=== PATIENT | female | born 1960 | race Caucasian/White ===

== ENCOUNTER → 2016-10-27 | Outpatient (CLI) | payer MEDICARE ==
--- NOTE | 2016-10-27 12:53 | WOMENS IMAGING REPORT ---
EXAM DESCRIPTION: BILAT SCREENING MAMMO W/CAD COMPLETED DATE/TIME: 10/27/2016 9:31 am REASON FOR STUDY: Z12.31, ROUTINE SCREENING MAMMO Z12.31 ENCNTR SCREEN MAMMOGRAM FOR MALIGNANT NEOP LASM OF CELESTINO COMPARISON: 08/07/2015 TECHNIQUE: Standard craniocaudal and mediolateral oblique views of each breast recorded using digita l acquisition. LIMITATIONS: None. FINDINGS: No masses, calcifications or architectural distortion. No areas of suspicion. Read with the assistance of CAD. .[facility] - R2 Cenova Version 1.3 .[facility] - R2 Cenova Version 1.3 .[facility] - R2 Cenova Version 2.4 .[facility]2 Cenova Version 2.4 [facility] - R2 [employer] Version 9.2 BREAST DENSITY: b. There are scattered areas of fibroglandular density. BIRAD: 1 NEGATIVE RECOMMENDATION: ROUTINE SCREENING COMMENT: PATIENT NOTIFIED BY LETTER. The [employer] recommends an annual screening mammogram for women aged 40 years or over. Each patient will receive a reminder prior to the anniversary date of her mammogram. The [employer] (ACR) has developed recommendations for screening MRI of the breast s in certain patient populations, to be used in conjunction with mammography. Breast MRI surveillanc e may be appropriate for women with more than 20% lifetime risk of developing breast cancer as deter mined by genetic testing, significant family history of the disease, or history of mantle radiation f or Hodgkins Disease. ACR Practice Guidelines 2008. TECHNICAL DOCUMENTATION: FINDING NUMBER: (1) ASSESSMENT: (1) JOB ID: [id number] [employer]- All Rights Reserved
== END ==
LOC: WI 09:07
PROVIDERS: ATTEND Family Medicine
DX: Z12.31 Encounter for screening mammogram for malignant neoplasm of breast (principal)
CPT/HCPCS: 77067; G0202

== ENCOUNTER → 2017-01-06 | Outpatient (CLI) | payer MEDICARE | LOC: RAD 09:35 | PROVIDERS: ATTEND Family Medicine | DX: M25.561 Pain in right knee (principal); M25.562 Pain in left knee; R60.9 Edema, unspecified ==

== ENCOUNTER 2017-03-04 20:33 | Emergency (ER) | payer MEDICARE, OTHER ==
[2017-03-04] MEDS ORDERED: HYDROCODONE/ACETAMINOPHEN 5-325 MG TABLET PO ONE (22:14)
--- NOTE | 2017-03-04 22:15 | ER Document Report ---
ED Extremity Problem, Lower - General Chief Complaint: Ankle Pain Stated Complaint: LEFT ANKLE PAIN Time Seen by Provider: 03/04/17 21:58 Notes: The patient is a 56-year-old female, past medical history multiple back surgeries, chronic left ankle pain from tendinopathy, presents with 1 day of worsening left ankle pain. She had a cast placed by her orthopedist last week. She is now noticing tingling in her toes. She is taking tramadol without much relief of her symptoms. Denies new injury, fevers, redness or rash. TRAVEL OUTSIDE OF THE [place] IN LAST 30 DAYS: No - Related Data Allergies/Adverse Reactions: diclofenac [Diclofenac] Allergy (Intermediate, Verified 07/07/15 08:56) Hives Sulfa (Sulfonamide Antibiotics) Allergy (Intermediate, Verified 07/07/15 08:56) elevated WBC count, elevated B/P Past Medical History - General Information source: Patient - Social History Smoking Status: Unknown if Ever Smoked Family History: Reviewed & Not Pertinent Patient has suicidal ideation: No Patient has homicidal ideation: No - Past Medical History Cardiac Medical History: Denies: Hx Coronary Artery Disease, Hx Heart Attack, Hx Hypertension Pulmonary Medical History: Denies: Hx Asthma, Hx Bronchitis, Hx COPD, Hx Pneumonia Neurological Medical History: Denies: Hx Cerebrovascular Accident, Hx Seizures Endocrine Medical History: Reports: Hx Hypothyroidism Renal/ Medical History: Denies: Hx Peritoneal Dialysis GI Medical History: Reports: Hx Gastroesophageal Reflux Disease Musculoskeltal Medical History: Reports Hx Arthritis - back/neck Psychiatric Medical History: Reports: Hx Depression Past Surgical History: Reports: Hx Section - x3, Hx Hysterectomy, Hx Orthopedic Surgery - left total hip replacement, Hx Tubal Ligation - Immunizations Hx Diphtheria, Pertussis, Tetanus Vaccination: Yes - <5years Review of Systems - Review of Systems Notes: REVIEW OF SYSTEMS: CONSTITUTIONAL: -fevers, -chills EENT: -eye pain, -difficulty swallowing, -nasal congestion CARDIOVASCULAR:-chest pain, -syncope. RESPIRATORY: -cough, -SOB GASTROINTESTINAL: -abdominal pain, - nausea, -vomiting, -diarrhea GENITOURINARY: -dysuria, -hematuria MUSCULOSKELETAL: +left ankle pain, -back pain, -neck pain SKIN: -rash or skin lesions. HEMATOLOGIC: -easy bruising or bleeding. LYMPHATIC: -swollen, enlarged glands. NEUROLOGICAL: -altered mental status or loss of consciousness, -headache, - neurologic symptoms PSYCHIATRIC: -anxiety, -depression. ALL OTHER SYSTEMS REVIEWED AND NEGATIVE. Physical Exam - Vital signs Vitals: Temp Pulse Resp BP Pulse Ox 98.1 F 117 H 20 150/77 H 99 03/04/17 20:53 03/04/17 20:53 03/04/17 20:53 03/04/17 20:53 03/04/17 20:53 - Notes Notes: PHYSICAL EXAMINATION: GENERAL: Crying, anxious HEAD: Atraumatic, normocephalic. EYES: Pupils equal round and reactive to light, extraocular movements intact, sclera anicteric, conjunctiva are normal. ENT: nares patent, oropharynx clear without exudates. Moist mucous membranes. NECK: Normal range of motion, supple without lymphadenopathy LUNGS: Breath sounds clear to auscultation bilaterally and equal. No wheezes rales or rhonchi. HEART: Regular rate and rhythm without murmurs ABDOMEN: Soft, nontender, normoactive bowel sounds. No guarding, no rebound. No masses appreciated. EXTREMITIES: Left ankle in cast, delayed left toe capillary refills, able to wiggle all toes. No cyanosis. NEUROLOGICAL: Cranial nerves grossly intact. Normal speech, normal gait. Normal sensory and motor exams. PSYCH: Normal mood, normal affect. SKIN: Warm, Dry, normal turgor, no rashes or lesions noted. Course - Re-evaluation Re-evalutation: Patient's left ankle cast was bivalved and patient had relief of her pain and toe tingling. Patient feels much better. Will send her home with follow-up at the orthopedic surgeon. - Vital Signs Vital signs: Temp Pulse Resp BP Pulse Ox 98.5 F 92 17 140/66 H 95 03/04/17 23:00 03/04/17 23:00 03/04/17 23:00 03/04/17 23:00 03/04/17 23:00 - Diagnostic Test Radiology reviewed: Image reviewed, Reports reviewed Radiology results interpreted by me: Left ankle x-ray: NAD Procedures - Joint Reduction/Fracture Care Left Ankle Time completed: 22:43 Consent obtained: Yes Pre-procedure NV exam: Yes Complications: No Notes: Bivalved left lower extremity cast using cast cutter. Discharge - Discharge Clinical Impression: Left ankle pain Qualifiers: Chronicity: unspecified Qualified Code(s): M25.572 - Pain in left ankle and joints of left foot Condition: Good Disposition: HOME, SELF-CARE Additional Instructions: Keep the Sebastian wrap around the cast. Follow-up with the orthopedic surgeon on Monday. Prescriptions: Hydrocodone/Acetaminophen [Solon 5-325 mg Tablet] 1 tab PO Q6H PRN #9 tablet PRN Reason: Referrals: JEFE WOOD DO [Primary Care Provider] - Follow up as needed
--- NOTE | 2017-03-04 22:24 | RADIOLOGY REPORT (SQ) ---
EXAM DESCRIPTION: ANKLE LEFT COMPLETE COMPLETED DATE/TIME: 03/04/2017 10:03 pm REASON FOR STUDY: pain COMPARISON: 10/05/2009 NUMBER OF VIEWS: Three views. TECHNIQUE: AP, lateral, and oblique radiographic images acquired of the left ankle. LIMITATIONS: Overlying casting material obscures fine osseous detail. FINDINGS: MINERALIZATION: Normal. BONES: No acute fracture or dislocation. No worrisome bone lesions. JOINTS: No effusions. SOFT TISSUES: No soft tissue swelling. No foreign body. OTHER: No other significant finding. IMPRESSION: Overlying casting material obscures fine osseous detail. No discrete radiographic evide nce of acute osseous injury. TECHNICAL DOCUMENTATION: JOB ID: [id number] [employer]- All Rights Reserved
[2017-03-04 23:08] VITALS: BP 140/66
== END 2017-03-04 23:10 | disposition home or self-care (01) ==
LOC: ER 20:33
DX: Z46.89 Encounter for fitting and adjustment of other specified devices (principal); M67.972 Unspecified disorder of synovium and tendon, left ankle and foot; M25.572 Pain in left ankle and joints of left foot; G89.29 Other chronic pain; R20.2 Paresthesia of skin; Z98.890 Other specified postprocedural states; Z79.891 Long term (current) use of opiate analgesic; Z88.3 Allergy status to other anti-infective agents; Z88.2 Allergy status to sulfonamides
CPT/HCPCS: 99283

== ENCOUNTER 2017-07-04 18:51 | Emergency (ER) | payer OTHER ==
[2017-07-04] MEDS ORDERED: HYDROMORPHONE HCL INJ/PF 2 MG/ML AMPULE IV ONE (18:54)
[2017-07-04] MEDS ORDERED: KETAMINE HCL INJ 500 MG/10 ML VIAL IV ONE (18:54)
--- NOTE | 2017-07-04 19:00 | ER Document Report ---
ED Extremity Problem, Lower - General Chief Complaint: Hip Injury Stated Complaint: RIGHT HIP PAIN Time Seen by Provider: 07/04/17 18:54 Notes: The patient is a 56-year-old female, past medical history multiple orthopedic surgeries, presents with right hip pain that started after she was using her scooter and felt a pop. She had left ankle surgery performed in [facility] last week. She took Vicodin without much relief of her pain. EMS provided her with 2 mg IV Dilaudid, 5 mg IV Valium, 100 mcg IV fentanyl and she is still in pain. Patient denies open wounds, numbness, tingling, head injury or neck pain. TRAVEL OUTSIDE OF THE [place] IN LAST 30 DAYS: No - Related Data Allergies/Adverse Reactions: diclofenac [Diclofenac] Allergy (Intermediate, Verified 07/07/15 08:56) Hives Sulfa (Sulfonamide Antibiotics) Allergy (Intermediate, Verified 07/07/15 08:56) elevated WBC count, elevated B/P Past Medical History - General Information source: Patient, Emergency Med Personnel - Social History Smoking Status: Unknown if Ever Smoked Family History: Reviewed & Not Pertinent - Past Medical History Cardiac Medical History: Denies: Hx Coronary Artery Disease, Hx Heart Attack, Hx Hypertension Pulmonary Medical History: Denies: Hx Asthma, Hx Bronchitis, Hx COPD, Hx Pneumonia Neurological Medical History: Denies: Hx Cerebrovascular Accident, Hx Seizures Endocrine Medical History: Reports: Hx Hypothyroidism Renal/ Medical History: Denies: Hx Peritoneal Dialysis GI Medical History: Reports: Hx Gastroesophageal Reflux Disease Musculoskeltal Medical History: Reports Hx Arthritis - back/neck Psychiatric Medical History: Reports: Hx Depression Past Surgical History: Reports: Hx Section - x3, Hx Hysterectomy, Hx Orthopedic Surgery - left total hip replacement, Hx Tubal Ligation - Immunizations Hx Diphtheria, Pertussis, Tetanus Vaccination: Yes - <5years Review of Systems - Review of Systems Notes: REVIEW OF SYSTEMS: CONSTITUTIONAL: -fevers, -chills EENT: -eye pain, -difficulty swallowing, -nasal congestion CARDIOVASCULAR:-chest pain, -syncope. RESPIRATORY: -cough, -SOB GASTROINTESTINAL: -abdominal pain, -nausea, -vomiting, -diarrhea GENITOURINARY: -dysuria, -hematuria MUSCULOSKELETAL: +right hip pain, -back pain, -neck pain SKIN: -rash or skin lesions. HEMATOLOGIC: -easy bruising or bleeding. LYMPHATIC: -swollen, enlarged glands. NEUROLOGICAL: -altered mental status or loss of consciousness, -headache, - neurologic symptoms PSYCHIATRIC: -anxiety, -depression. ALL OTHER SYSTEMS REVIEWED AND NEGATIVE. Physical Exam - Vital signs Vitals: Pulse Resp BP Pulse Ox 89 20 155/89 H 97 07/04/17 19:09 07/04/17 19:09 07/04/17 19:09 07/04/17 19:09 - Notes Notes: PHYSICAL EXAMINATION: GENERAL: Distressed. HEAD: Atraumatic, normocephalic. EYES: Pupils equal round and reactive to light, extraocular movements intact, sclera anicteric, conjunctiva are normal. ENT: nares patent, oropharynx clear without exudates. Moist mucous membranes. NECK: Normal range of motion, supple without lymphadenopathy LUNGS: Breath sounds clear to auscultation bilaterally and equal. No wheezes rales or rhonchi. HEART: Tachycardia, regular rhythm. ABDOMEN: Soft, nontender, normoactive bowel sounds. No guarding, no rebound. No masses appreciated. EXTREMITIES: Inward rotation of right leg with shortening. Strong distal pulses. No sensory changes. NEUROLOGICAL: Cranial nerves grossly intact. Normal speech, normal gait. Normal sensory and motor exams. PSYCH: Normal mood, normal affect. SKIN: Warm, Dry, normal turgor, no rashes or lesions noted. Course - Re-evaluation Re-evalutation: Patient with right hip dislocation of her prosthetic hip. She is neurovascularly intact distally. Hip successfully reduced with procedural sedation. She has an appointment with her Orthopedic Surgeon tomorrow in [place]. Instructed her to keep off her legs, take her home [place], add Naprosyn and follow-up with orthopedics tomorrow. - Vital Signs Vital signs: Temp Pulse Resp BP Pulse Ox 73 13 120/75 100 07/04/17 21:03 07/04/17 21:03 07/04/17 21:03 07/04/17 21:03 - Diagnostic Test Radiology reviewed: Image reviewed, Reports reviewed Radiology results interpreted by me: Right hip x-ray: superior lateral hip dislocation, no fractures Procedures - Conscious Sedation Conscious sedation Time started: 20:35 Time completed: 21:00 Consent obtained: Yes Indication: right hip dislocation Last meal: 1200 Normal healthy pt.: P1. - ASA Classification Airway Evaluation: Normal anatomy Mallampati Classification: Class 1 Used during procedure: Suction available, IV access obtained, Pulse ox on pt., surgical assistant certified on pt. Medications administered: Diprivan Reversal agents: None I personally performed/intraservice time: Sedation, Procedure, 30 min or less Complications: No - Joint Reduction/Fracture Care Right Hip Time completed: 20:59 Consent obtained: Yes Conscious sedation: Yes Pre-procedure NV exam: Yes Fracture: Other - right hip dislocation Manipulation comment: internal rotation Post-procedure NV exam: Yes Post-reduction x-ray: Joint reduced Reduction attempts: 2 Complications: No Discharge - Discharge Clinical Impression: Hip dislocation, right Qualifiers: Encounter type: initial encounter Qualified Code(s): S73.004A - Unspecified dislocation of right hip, initial encounter Condition: Stable Disposition: HOME, SELF-CARE Additional Instructions: Dislocated Artificial Hip You have been treated for a dislocation of your hip replacement prosthesis. Once the joint prosthesis has been repositioned, you can resume your normal activities. Allow time to recover from whatever sedation was required to reduce the joint dislocation. Use a cane, crutches, or walker as needed. Pain medicine may be needed for the next few days. Do not lie on your operated hip until your doctor approves. A dislocation may occur when the hip is flexed while turned inward. There are some activities you should avoid to decrease the risk of having another dislocation. Do not cross your legs, and keep your knees apart getting in and out of your car. Do not lean forward beyond 90 degrees or raise your knee higher than the level of your hip. Do not sit in low chairs Do not pivot with your foot on the ground, but take short steps when you turn. Call your doctor for a follow-up exam as recommended. Return here if there is increasing pain, numbness or weakness in the leg or foot, or recurrent dislocation. Forms: Elevated Blood Pressure Referrals: CAS DILL MD [ACTIVE STAFF] - Follow up as needed
[2017-07-04] MEDS ORDERED: PROPOFOL INJ 200 MG/20 ML VIAL IV ONE (19:31)
--- NOTE | 2017-07-04 19:46 | RADIOLOGY REPORT (SQ) ---
EXAM DESCRIPTION: HIP RIGHT AP/LATERAL COMPLETED DATE/TIME: 07/04/2017 7:20 pm REASON FOR STUDY: right hip injury COMPARISON: None. NUMBER OF VIEWS: Two views. TECHNIQUE: AP pelvis and additional frog-leg view of the right hip. LIMITATIONS: None. FINDINGS: MINERALIZATION: Normal. RIGHT HIP: Superior- lateral dislocation of the right total hip arthroplasty, approximately 2.9 cm. No fracture identified. LEFT HIP: No fracture or dislocation. Left total hip arthroplasty hardware appears in expected posit ion. PUBIS AND ISCHIUM: No fracture. PELVIS: No fracture. SACRUM: No fracture or dislocation. No worrisome bone lesions. LOWER LUMBAR SPINE: No fracture or dislocation. Postsurgical changes and moderate disc disease. SOFT TISSUES: No findings. OTHER: No other significant finding. IMPRESSION: Superior- lateral dislocation of the right total hip arthroplasty, approximately 2.9 cm. No fracture identified. TECHNICAL DOCUMENTATION: JOB ID: [id number] [employer]- All Rights Reserved
--- NOTE | 2017-07-04 21:28 | RADIOLOGY REPORT (SQ) ---
EXAM DESCRIPTION: PELVIS AP COMPLETED DATE/TIME: 07/04/2017 9:00 pm REASON FOR STUDY: post-reduction COMPARISON: Earlier exam same date NUMBER OF VIEWS: One view TECHNIQUE: AP Pelvis LIMITATIONS: None. FINDINGS: Right hip arthroplasty hardware appears in expected alignment on the single frontal view. No fracture visualized. OTHER: No other significant finding. IMPRESSION: Right hip arthroplasty hardware appears in expected alignment on the single frontal view . No fracture visualized. TECHNICAL DOCUMENTATION: JOB ID: [id number] [email or web address]- All Rights Reserved
[2017-07-04 21:59] VITALS: BP 131/74
== END 2017-07-04 21:58 | disposition home or self-care (01) ==
LOC: ER 18:51
PROC: 0SS9XZZ Reposition Right Hip Joint, External Approach (ICD-10-PCS; principal; 2017-07-04)
DX: S73.004A Unspecified dislocation of right hip, initial encounter (principal); X58.XXXA Exposure to other specified factors, initial encounter; E03.9 Hypothyroidism, unspecified; Z96.642 Presence of left artificial hip joint; Z90.710 Acquired absence of both cervix and uterus; Z88.2 Allergy status to sulfonamides
CPT/HCPCS: 99284; 99153; 99152; 96374; 73502; 72170; 27250; J3490; J1170; J2704

== ENCOUNTER → 2017-07-14 | Outpatient (CLI) | payer MEDICARE ==
--- NOTE | 2017-07-14 11:31 | RADIOLOGY REPORT (SQ) ---
EXAM DESCRIPTION: ELBOW RIGHT >2 VIEWS COMPLETED DATE/TIME: 07/14/2017 11:19 am REASON FOR STUDY: PAIN IN RIGHT ELBOW M25.521 PAIN IN RIGHT ELBOW COMPARISON: None. NUMBER OF VIEWS: Four views. TECHNIQUE: AP, lateral, and both oblique radiographic images acquired of the right elbow. LIMITATIONS: None. FINDINGS: MINERALIZATION: Normal. BONES: No acute fracture or dislocation. No worrisome bone lesions. JOINT: No effusion. SOFT TISSUES: No soft tissue swelling. No foreign body. OTHER: No other significant finding. IMPRESSION: NEGATIVE STUDY OF THE RIGHT ELBOW. NO RADIOGRAPHIC EVIDENCE OF ACUTE INJURY. TECHNICAL DOCUMENTATION: JOB ID: [id number] [employer]- All Rights Reserved
== END ==
LOC: OD 10:58
PROVIDERS: ATTEND Family Medicine
DX: M25.521 Pain in right elbow (principal)

== ENCOUNTER 2017-10-11 11:42 | Emergency (ER) | payer OTHER, MEDICARE ==
[2017-10-11] MEDS ORDERED: HYDROMORPHONE HCL INJ/PF 2 MG/ML AMPULE IV ONE ×2 (11:49→12:09)
[2017-10-11] MEDS ORDERED: KETAMINE HCL INJ 500 MG/10 ML VIAL IV ONE (12:09)
[2017-10-11] MEDS ORDERED: KETOROLAC TROMETHAMINE INJ/PF 30 MG/1 ML SDV IV ONE (12:09)
[2017-10-11] MEDS ORDERED: NORMAL SALINE 1000 ML 1,000 ML IV ONE (12:23)
[2017-10-11] MEDS ORDERED: PROPOFOL INJ 200 MG/20 ML VIAL IV ONE ×2 (12:23→13:03)
--- NOTE | 2017-10-11 12:36 | ER Document Report ---
ED Hip Pain/Injury - General Chief Complaint: Hip Pain Stated Complaint: FALL LEFT HIP PAIN Time Seen by Provider: 10/11/17 11:59 Notes: The patient is a 56-year-old female, past medical history recurrent right prostatic hip dislocation, presents after she bent down and felt her left hip pop out. She has seen her orthopedic surgeon in [place] for this issue. She was given 1 mg Dilaudid IV by EMS prior to arrival, but she still in pain. Patient denies numbness, tingling, open wounds or any other injuries. TRAVEL OUTSIDE OF THE [place] IN LAST 30 DAYS: No - Related Data Allergies/Adverse Reactions: diclofenac [Diclofenac] Allergy (Intermediate, Verified 07/07/15 08:56) Hives Sulfa (Sulfonamide Antibiotics) Allergy (Intermediate, Verified 07/07/15 08:56) elevated WBC count, elevated B/P Past Medical History - General Information source: Patient - Social History Smoking Status: Unknown if Ever Smoked Frequency of alcohol use: None Drug Abuse: None Family History: Reviewed & Not Pertinent Patient has suicidal ideation: No Patient has homicidal ideation: No - Past Medical History Cardiac Medical History: Denies: Hx Coronary Artery Disease, Hx Heart Attack, Hx Hypertension Pulmonary Medical History: Denies: Hx Asthma, Hx Bronchitis, Hx COPD, Hx Pneumonia Neurological Medical History: Denies: Hx Cerebrovascular Accident, Hx Seizures Endocrine Medical History: Reports: Hx Hypothyroidism Renal/ Medical History: Denies: Hx Peritoneal Dialysis GI Medical History: Reports: Hx Gastroesophageal Reflux Disease Musculoskeltal Medical History: Reports Hx Arthritis - back/neck Psychiatric Medical History: Reports: Hx Depression Past Surgical History: Reports: Hx Section - x3, Hx Hysterectomy, Hx Orthopedic Surgery - left total hip replacement, Hx Tubal Ligation - Immunizations Hx Diphtheria, Pertussis, Tetanus Vaccination: Yes - <5years Review of Systems - Review of Systems Notes: REVIEW OF SYSTEMS: CONSTITUTIONAL: -fevers, -chills EENT: -eye pain, -difficulty swallowing, -nasal congestion CARDIOVASCULAR: -chest pain, -syncope. RESPIRATORY: -cough, -SOB GASTROINTESTINAL: -abdominal pain, -nausea, -vomiting, -diarrhea GENITOURINARY: -dysuria, -hematuria MUSCULOSKELETAL: +right hip pain, -back pain, -neck pain SKIN: -rash or skin lesions. HEMATOLOGIC: -easy bruising or bleeding. LYMPHATIC: -swollen, enlarged glands. NEUROLOGICAL: -altered mental status or loss of consciousness, -headache, - neurologic symptoms PSYCHIATRIC: -anxiety, -depression. ALL OTHER SYSTEMS REVIEWED AND NEGATIVE. Physical Exam - Vital signs Vitals: Temp Pulse Resp BP Pulse Ox 98.2 F 175 H 29 H 121/104 H 99 10/11/17 12:04 10/11/17 12:04 10/11/17 12:04 10/11/17 12:04 10/11/17 12:04 - Notes Notes: PHYSICAL EXAMINATION: GENERAL: Severe pain. HEAD: Atraumatic, normocephalic. EYES: Pupils equal round and reactive to light, extraocular movements intact, sclera anicteric, conjunctiva are normal. ENT: nares patent, oropharynx clear without exudates. Moist mucous membranes. NECK: Normal range of motion, supple without lymphadenopathy LUNGS: Breath sounds clear to auscultation bilaterally and equal. No wheezes rales or rhonchi. HEART: Tachycardia, regular rhythm. ABDOMEN: Soft, nontender, normoactive bowel sounds. No guarding, no rebound. No masses appreciated. EXTREMITIES: Right leg with inward rotation and deformity. Strong DP and PT pulses. Sensation intact. NEUROLOGICAL: Cranial nerves grossly intact. Normal speech, normal gait. Normal sensory and motor exams. SKIN: Warm, Dry, normal turgor, no rashes or lesions noted. Course - Re-evaluation Re-evalutation: Patient with recurrent right prosthetic hip dislocation that occurred after she tried to bend down and pick something up. She is neurovascularly intact distally. Patient provided sedation and the hip was reduced. She remained neurovascularly intact distally. She uses a wheelchair and walker at home and has tramadol for pain control. Instructed her to follow-up with her orthopedic surgeon in [place] tomorrow for a recheck of her symptoms and further recommendations. - Vital Signs Vital signs: Temp Pulse Resp BP Pulse Ox 98.2 F 175 H 29 H 121/104 H 99 10/11/17 12:04 10/11/17 12:04 10/11/17 12:10/11/17 12:04 10/11/17 12:04 - Diagnostic Test Radiology reviewed: Image reviewed, Reports reviewed Radiology results interpreted by me: Hip x-ray: Right prosthetic hip dislocation Procedures - Conscious Sedation Conscious sedation Time started: 12:40 Time completed: 12:59 Consent obtained: Yes Indication: Right hip dislocation Last meal: Yesterday night Pt with a mild systemic disease.: P2. - ASA Classification. Airway Evaluation: Normal anatomy Mallampati Classification: Class 1 Used during procedure: Suction available, IV access obtained, Pulse ox on pt., quality assurance monitor body on pt. Medications administered: Diprivan Reversal agents: None I personally performed/intraservice time: Sedation, Procedure, 30 min or less Complications: No - Joint Reduction/Fracture Care Right Hip Time completed: 12:47 Consent obtained: Yes Conscious sedation: Yes Pre-procedure NV exam: Yes Post-procedure NV exam: Yes Post-reduction x-ray: Joint reduced, No fracture seen Reduction attempts: 1 Complications: No Discharge - Discharge Clinical Impression: Recurrent dislocation, right hip Condition: Stable Disposition: HOME, SELF-CARE Additional Instructions: Follow-up with your Orthopedic Surgeon this week to have your hip rechecked. Take your Tramadol and add Motrin and heating packs to help with your pain. Dislocated Artificial Hip You have been treated for a dislocation of your hip replacement prosthesis. Once the joint prosthesis has been repositioned, you can resume your normal activities. Allow time to recover from whatever sedation was required to reduce the joint dislocation. Use a cane, crutches, or walker as needed. Pain medicine may be needed for the next few days. Do not lie on your operated hip until your doctor approves. A dislocation may occur when the hip is flexed while turned inward. There are some activities you should avoid to decrease the risk of having another dislocation. Do not cross your legs, and keep your knees apart getting in and out of your car. Do not lean forward beyond 90 degrees or raise your knee higher than the level of your hip. Do not sit in low chairs Do not pivot with your foot on the ground, but take short steps when you turn. Call your doctor for a follow-up exam as recommended. Return here if there is increasing pain, numbness or weakness in the leg or foot, or recurrent dislocation. Referrals: JEFE WOOD DO [Primary Care Provider] - Follow up as needed CAS DILL MD [ACTIVE STAFF] - Follow up as needed
--- NOTE | 2017-10-11 13:00 | RADIOLOGY REPORT (SQ) ---
EXAM DESCRIPTION: PELVIS AP COMPLETED DATE/TIME: 10/11/2017 12:29 pm REASON FOR STUDY: fall, right hip pain, prev dislocation COMPARISON: None. NUMBER OF VIEWS: One view TECHNIQUE: AP Pelvis LIMITATIONS: None. FINDINGS: MINERALIZATION: Normal. HIPS: Dislocated right total hip replacement with femoral head being displaced superiorly and lateral ly relative to the acetabulum. No fractures. Status post left total hip replacement. PELVIS AND SACRUM: No acute fracture or dislocation. No worrisome bone lesions. PUBIS AND ISCHIUM: No acute fracture. LOWER LUMBAR SPINE: Postoperative changes with sherley and screw device. SOFT TISSUES: No findings. OTHER: No other significant finding. IMPRESSION: Dislocated right total hip replacement. TECHNICAL DOCUMENTATION: JOB ID: [id number] [employer]- All Rights Reserved
--- NOTE | 2017-10-11 13:13 | RADIOLOGY REPORT (SQ) ---
EXAM DESCRIPTION: PELVIS AP COMPLETED DATE/TIME: 10/11/2017 12:58 pm REASON FOR STUDY: POST REDUCTION COMPARISON: None. NUMBER OF VIEWS: One view TECHNIQUE: AP Pelvis LIMITATIONS: None. FINDINGS: MINERALIZATION: Normal. HIPS: Interval reduction of previous noted dislocated right total hip replacement which now appears t o be in anatomic alignment. Status post bilateral total hip replacements. No fracture. PELVIS AND SACRUM: No acute fracture or dislocation. No worrisome bone lesions. PUBIS AND ISCHIUM: No acute fracture. LOWER LUMBAR SPINE: No significant findings as visualized. SOFT TISSUES: No findings. OTHER: No other significant finding. IMPRESSION: Interval reduction of previous noted dislocated right total hip replacement. TECHNICAL DOCUMENTATION: JOB ID: [id number] [employer] [facility] [employer]- All Rights Reserved
[2017-10-11 15:44] VITALS: BP 118/75
== END 2017-10-11 14:55 | disposition home or self-care (01) ==
LOC: ER 11:42
DX: M24.451 Recurrent dislocation, right hip (principal); R00.0 Tachycardia, unspecified; Z88.2 Allergy status to sulfonamides; Z88.6 Allergy status to analgesic agent
CPT/HCPCS: 99284; 96361; 99152; 96374; 96375; 72170; 27265; J3490; J1885; J1170; J7030; J2704

== ENCOUNTER → 2017-10-14 | Outpatient (CLI) | payer MEDICARE ==
--- NOTE | 2017-10-14 11:51 | RADIOLOGY REPORT (SQ) ---
EXAM DESCRIPTION: CHEST PA/LATERAL COMPLETED DATE/TIME: 10/14/2017 11:42 am REASON FOR STUDY: PRE OP COMPARISON: 04/03/2014 EXAM PARAMETERS: NUMBER OF VIEWS: two views TECHNIQUE: Digital Frontal and Lateral radiographic views of the chest acquired. RADIATION DOSE: NA LIMITATIONS: none FINDINGS: LUNGS AND PLEURA: No opacities, masses or pneumothorax. No pleural effusion. MEDIASTINUM AND HILAR STRUCTURES: No masses or contour abnormalities. HEART AND VASCULAR STRUCTURES: Heart normal size. No evidence for failure. BONES: No acute findings. HARDWARE: None in the chest. OTHER: No other significant finding. IMPRESSION: NO SIGNIFICANT RADIOGRAPHIC FINDING IN THE CHEST. TECHNICAL DOCUMENTATION: JOB ID: [id number] [employer]- All Rights Reserved
[2017-10-14 12:28] LABS: ABSOLUTE EOSINOPHILS # (AUTO) 0.1 10^3/uL (0.0-0.6); ABSOLUTE LYMPHOCYTES (AUTO) 1.7 10^3/uL (0.5-4.7); ABSOLUTE MONOCYTES (AUTO) 0.6 10^3/uL (0.1-1.4); ABSOLUTE NEUT (AUTO) 4.5 10^3/uL (1.7-8.2); BASOPHILS % (AUTO) 0.5 % (0-2); EOSINOPHILS % (AUTO) 1.4 % (0-6); HEMATOCRIT 42.5 % (36.0-47.0); HEMOGLOBIN 14.5 g/dL (12.0-15.5); LYMPHOCYTES % (AUTO) 24.2 % (13-45); MEAN CORPUSCULAR HEMOGLOBIN 28.2 pg (27.0-33.4); MEAN CORPUSCULAR HGB CONC 34.2 g/dL (32.0-36.0); MEAN CORPUSCULAR VOLUME 82 fl (80-97); PLATELET COUNT 193 10^3/uL (150-450); RED BLOOD COUNT 5.16 10^6/uL (3.72-5.28); RED CELL DISTRIBUTION WIDTH 14.6 % (11.5-14.0); SEGMENTED NEUTROPHILS % (AUTO) 64.9 % (42-78); TOTAL CELLS COUNTED % (AUTO) 100 %
[2017-10-14 12:39] LABS: APPEARANCE,URINE CLEAR; BILIRUBIN,URINE NEGATIVE (NEGATIVE); COLOR,URINE YELLOW; GLUCOSE, URINE NEGATIVE (NEGATIVE); KETONES,URINE NEGATIVE (NEGATIVE); LEUKOCYTE ESTERASE,URINE TRACE (NEGATIVE); NITRITE,URINE NEGATIVE (NEGATIVE); PROTEIN,URINE NEGATIVE (NEGATIVE); URINE SPECIFIC GRAVITY 1.018; UROBILINOGEN,URINE NEGATIVE mg/dL (<2.0)
[2017-10-14 12:51] LABS: ANION GAP 8 (5-19); BLOOD UREA NITROGEN 18 mg/dL (7-20); C-REACTIVE PROTEIN 12.4 mg/L (<10.0); CARBON DIOXIDE 28 mmol/L (22-30); CHLORIDE 103 mmol/L (98-107); GLUCOSE 94 mg/dL (75-110); POTASSIUM 4.5 mmol/L (3.6-5.0)
[2017-10-14 13:03] LABS: ERYTHROCYTE SEDIMENTATION RATE 16 mm/hr (0-30)
--- NOTE | 2017-10-14 22:15 | EKG REPORT ---
SEVERITY:- OTHERWISE NORMAL ECG - SINUS RHYTHM ATRIAL PREMATURE COMPLEX : Confirmed by: April Burger 14-Oct-2017 22:15:34
== END ==
LOC: OD 11:30
PROVIDERS: ATTEND Orthopaedic Surgery
DX: Z01.818 Encounter for other preprocedural examination (principal)
CPT/HCPCS: 36415; 71046; 80048; 81001; 85025; 85652; 86140; 93005; 93010

== ENCOUNTER 2017-10-23 06:52 | Inpatient (IN) | payer OTHER, MEDICARE ==
[~2017-10-23 06:52] MED LIST: BUPIVACAINE INJ/PF LIPOSOME/PF 266 MG/20 ML SDV IJ PRN; CEFAZOLIN INJ 1 GM VIAL IV PRN; IBUPROFEN 800 MG/NS 250 ML IV PRN; LACTATED RINGERS 1000 ML IV PRN; LANSOPRAZOLE 15 MG TAB.RAP.DR PO PRN; LIDOCAINE 0.5% INJ-PF (5 MG/ML) 50 ML SDV SUBCUT PRN; OXYCODONE HCL SR 10 MG TABLET PO PRN; VANCOMYCIN HCL 1,000 MG in DEXTROSE 5%-WATER 250 ML IV PRN
--- NOTE | 2017-10-23 07:51 | Physician Advisory Note ---
Physician Advisor ProgressNote .: Pursuant to the plan for [facility], I have reviewed the medical record for this patient. Physician Advisor Statement: Please consider documenting explicitly, if you agree: 1. ? "failed previous joint arthroplasty, needing revision due to repeated hip dislocations" 2. "Nonsurgical medical management would be ineffective or counterproductive & the best tx option is surgical because " (#1 above? pain & significant disabling interference w/ADLs below? ...) 3. "Pain or functional disability from failed joint arthroplasty interferes with these ADLs (choose all that apply): standing, walking, bathing, climbing stairs, squatting, cooking, ..." *[employer] will want it obvious per documentation that this surgery was done not just for patient preference/desire (when medical tx/watchful waiting was appropriate), but was medically appropriate & necessary, if they are going to pay for it. If, in this sort of situation, both watchful waiting and surgery are equally medically appropriate, it may be helpful to have that documented. Thanks for all you do! CK
[2017-10-23] MEDS ORDERED: THROMBIN (BOVINE) 5000 UNIT EPITAXIS KIT ONE (09:15)
[2017-10-23] MEDS ORDERED: BUPIVACAINE INJ/PF LIPOSOME/PF 266 MG/20 ML SDV ONE (09:15)
[2017-10-23] MEDS ORDERED: THROMBIN (BOVINE) TOPICAL 20000 UNIT VIAL ONE (09:15)
[2017-10-23] MEDS ORDERED: PROPOFOL INJ 200 MG/20 ML VIAL IV ONE (11:26)
[2017-10-23] MEDS ORDERED: MIDAZOLAM 2 MG/2 ML INJ ONE (11:26)
[2017-10-23] MEDS ORDERED: FENTANYL CITRATE INJ/PF 100 MCG/2 ML AMPUL ONE ×2 (11:26→11:53)
[2017-10-23] MEDS ORDERED: TRANEXAMIC ACID INJ/PF 1,000 MG/10 ML SDV IV ONE ×2 (11:27→15:00)
[2017-10-23] MEDS ORDERED: HYDROMORPHONE HCL INJ/PF 2 MG/ML AMPULE ONE (11:54)
[2017-10-23] MEDS ORDERED: DIPHENHYDRAMINE HCL 50 MG/ML VIAL ONE (12:19)
[2017-10-23] MEDS ORDERED: DIPHENHYDRAMINE HCL 50 MG/ML VIAL IV PRN ×2 (12:54→13:27)
[2017-10-23] MEDS ORDERED: MEPERIDINE HCL/PF INJ 25 MG/1 ML DISP.SYRIN IV PRN (12:54)
[2017-10-23] MEDS ORDERED: PROMETHAZINE HCL INJ 25 MG/1 ML VIAL IV PRN (12:54)
[2017-10-23] MEDS ORDERED: MORPHINE SULFATE 10 MG/ML INJ IV PRN ×5 (12:54→18:00)
[2017-10-23] MEDS ORDERED: FENTANYL CITRATE INJ/PF 100 MCG/2 ML AMPUL IV PRN ×3 (12:54)
--- NOTE | 2017-10-23 13:21 | Operative Report ---
Operative Report DATE OF SURGERY: 10/23/17 PREOPERATIVE DIAGNOSIS: Right prosthetic hip instability OPERATION: Right hip revision arthroplasty SURGEON: CAS DILL 1ST DESOLDERER: ORTIZ HARRISON TISSUE REMOVED OR ALTERED: Cultures 2 to microbiology. Implants to CSS ESTIMATED BLOOD LOSS: 100 PROCEDURE: With the patient in a left lateral decubitus position on the operating table the right hip stability was examined. The instability was easily duplicated and was straight posterior. Subsequently the leg was prepped and draped in a sterile fashion. A curvilinear incision made over the greater trochanter line with the previous surgical approach. Sharp dissection electrocautery used to carry incision down to the implant. Cultures were sent for culture and sensitivity. The hip is dislocated. The femoral head which is ceramic is easily disimpacted from the trunnion. Soft tissues then cleared off with a rim of the acetabulum. The acetabular polyethylene is removed using an appropriate tool. The central plug from the existing S tabular shell was removed with a screwdriver. The wound was irrigated. Reconstructive options that are available today are less than what I anticipated preoperatively. Hi wall liners are not available today which was 1 of the options that I would pursued. Therefore a dual mobility cup is the next option that is explored. A 42 mm dual mobility cup on top of a +728 mm head is explored and seems to provide significantly improved soft tissue tension as well as implant stability. A decision was made to use this construct. The dual mobility liner is packed into the acetabulum. The chrome cobalt 28 mm head +7 neck is impacted onto the trunnion with the polyethylene 3 impacted. The hip is reduced. The wound is art with pulse lavage. The wound is closed in layers with interrupted Vicryl followed by orestes. A sterile compressive dressing was applied and the patient's return to the PACU in satisfactory vision.
[2017-10-23] MEDS ORDERED: MAG HYDROX/AL HYDROX/SIMETH SUSP 30 ML UDCUP PO PRN (13:27)
[2017-10-23] MEDS ORDERED: ONDANSETRON HCL INJ/PF 4 MG/2 ML SDV IV PRN (13:27)
[2017-10-23] MEDS ORDERED: OXYCODONE HCL IR 5 MG TABLET PO PRN (13:27)
[2017-10-23] MEDS ORDERED: RINGERS SOLUTION,LACTATED 1,000 ML IV PRN (13:27)
[2017-10-23] MEDS ORDERED: MORPHINE SULFATE 10 MG/ML INJ IM PRN (13:27)
[2017-10-23] MEDS ORDERED: ONDANSETRON 4 MG TAB.RAPDIS PO PRN (13:27)
[2017-10-23] MEDS ORDERED: ZOLPIDEM TARTRATE 5 MG TABLET PO PRN (13:27)
[2017-10-23] MEDS: FENTANYL CITRATE INJ/PF 100 MCG/2 ML AMPUL ONE ×2 (13:40→13:45)
[2017-10-23] MEDS ORDERED: ROCURONIUM BROMIDE INJ 50 MG/5 ML VIAL IV ONE (14:33)
[2017-10-23] MEDS ORDERED: LIDOCAINE 2% INJ-PF (20 MG/ML) 2 ML AMPUL ONE (14:33)
[2017-10-23] MEDS ORDERED: DEXAMETHASONE SOD PHOSPHATE INJ 4 MG/1 ML VIAL ONE (14:33)
[2017-10-23] MEDS ORDERED: ONDANSETRON HCL INJ/PF 4 MG/2 ML SDV ONE (14:33)
[2017-10-23] MEDS ORDERED: METOCLOPRAMIDE HCL INJ/PF 10 MG/2 ML SDV ONE (14:33)
[2017-10-23] MEDS ORDERED: NEOSTIGMINE METHYLSULFATE 10 MG/10 ML VIAL ONE (14:33)
[2017-10-23] MEDS ORDERED: GLYCOPYRROLATE INJ 0.4 MG/2 ML VIAL ONE (14:33)
--- NOTE | 2017-10-23 14:48 | RADIOLOGY REPORT (SQ) ---
EXAM DESCRIPTION: PELVIS AP COMPLETED DATE/TIME: 10/23/2017 2:40 pm REASON FOR STUDY: Post Op Long Cassette in PACU T84.029A DISLOCATION OF UNSP INTERNAL JOINT PROSTH ESIS, INIT COMPARISON: None. NUMBER OF VIEWS: One view TECHNIQUE: Digital radiographic images of the pelvis post-procedure LIMITATIONS: None. FINDINGS: BONES: No worrisome or unexpected findings post-procedure. DEVICE: Right total hip arthroplasty. SOFT TISSUES: No worrisome findings. Expected postoperative soft tissue changes. IMPRESSION: SATISFACTORY POSTOPERATIVE PELVIS. TECHNICAL DOCUMENTATION: JOB ID: [id number] [employer]- All Rights Reserved
[2017-10-23] MEDS ORDERED: PREGABALIN 75 MG CAPSULE PO SCH (18:00)
[2017-10-23] MEDS ORDERED: ACETAMINOPHEN 100 ML IV ONE (19:27)
[2017-10-23] MEDS: IBUPROFEN 800 MG in NORMAL SALINE 250 ML IV SCH (21:38)
[2017-10-23] MEDS ORDERED: RIVAROXABAN 10 MG TABLET PO SCH (22:00)
[2017-10-23] MEDS ORDERED: OXYCODONE HCL SR 10 MG TABLET PO SCH (22:00)
[2017-10-23] MEDS ORDERED: ROPINIROLE HCL 0.25 MG TABLET PO SCH (22:00)
[2017-10-23] MEDS ORDERED: BUPROPION HCL 75 MG TABLET PO SCH (22:00)
[2017-10-23] MEDS ORDERED: TRAZODONE HCL 50 MG TABLET PO PRN (23:00)
[2017-10-23] MEDS ORDERED: TIZANIDINE HCL 4 MG TABLET PO PRN (23:45)
[2017-10-24] MEDS ORDERED: VANCOMYCIN HCL 1,000 MG in DEXTROSE 5%-WATER 250 ML IV ONE (01:30)
[2017-10-24] MEDS ORDERED: ACETAMINOPHEN 325 MG TABLET PO PRN (02:00)
[2017-10-24] MEDS: IBUPROFEN 800 MG in NORMAL SALINE 250 ML IV SCH (05:12)
[2017-10-24 05:40] LABS: HEMATOCRIT 36.9 % (36.0-47.0); HEMOGLOBIN 12.5 g/dL (12.0-15.5); MEAN CORPUSCULAR HEMOGLOBIN 28.2 pg (27.0-33.4); MEAN CORPUSCULAR HGB CONC 33.8 g/dL (32.0-36.0); MEAN CORPUSCULAR VOLUME 84 fl (80-97); PLATELET COUNT 215 10^3/uL (150-450); RED BLOOD COUNT 4.42 10^6/uL (3.72-5.28); RED CELL DISTRIBUTION WIDTH 14.1 % (11.5-14.0); WHITE BLOOD COUNT 9.4 10^3/uL (4.0-10.5)
[2017-10-24] MEDS ORDERED: LANSOPRAZOLE 30 MG TAB.RAP.DR PO SCH (06:00)
[2017-10-24] MEDS ORDERED: LEVOTHYROXINE SODIUM 0.025 MG TABLET PO SCH (06:00)
[2017-10-24 06:11] LABS: ANION GAP 8 (5-19); BLOOD UREA NITROGEN 16 mg/dL (7-20); CALCIUM 8.8 mg/dL (8.4-10.2); CARBON DIOXIDE 30 mmol/L (22-30); CHLORIDE 102 mmol/L (98-107); GLUCOSE 129 mg/dL (75-110); POTASSIUM 4.5 mmol/L (3.6-5.0); SODIUM 139.6 mmol/L (137-145)
--- NOTE | 2017-10-24 06:51 | PDOC DISCHARGE SUMMARY ---
General - Admit/Disc Date/PCP Admission Date/Primary Care Provider: 10/23/17 10:59 JEFE WOOD, Discharge Date: 10/24/17 - Discharge Diagnosis (1) Mechanical failure of prosthetic joint Is this a current diagnosis for this admission?: Yes - Additional Information Resuscitation Status: Full Code Discharge Diet: As Tolerated, Regular Discharge Activity: Activity As Tolerated, No Driving, No tub bath, Walk Frequently Home Medications: Ibuprofen [Motrin 800 Mg Tablet] 800 mg PO Q6H #20 tablet 06/13/12 Ondansetron HCl [Zofran 4 mg Tablet] 1 - 2 tab PO Q4H PRN #10 tablet 07/02/15 Bupropion HCl [Wellbutrin Sr 150 mg Tablet] 150 mg PO DAILY 07/06/15 Duloxetine HCl [Cymbalta 20 Mg Capsule.Dr] 30 mg PO DAILY 07/06/15 Levothyroxine Sodium [Synthroid 0.025 mg Tablet] 0.025 mg PO DAILY 07/06/15 Ropinirole HCl 0.25 mg PO QHS 07/06/15 Tizanidine HCl [Zanaflex] 4 mg PO ASDIR PRN 07/06/15 Trazodone HCl [Oleptro Er] 150 mg PO ASDIR 07/06/15 Hydrocodone/Acetaminophen [Campbell 5-325 mg Tablet] 1 tab PO Q6H PRN #9 tablet 07/11 History of Present Illness History of Present Illness: DEAN MANUEL is a 56 year old female presenting with spontaneous subluxation of previous total right hip arthroplasty. This was classified as a mechanical failure of previous total right hip arthroplasty and patient underwent total right hip arthroplasty revision. 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 She was taken to the PACU in satisfactory condition. She was then returned to the surgical floor where she was seen by physical therapy for weightbearing as tolerated and nursing staff for pain management. She makes amazing progress with physical therapy and relating 400 feet on postop day 0. She will be discharged to home today with home health nursing, home physical therapy, wheeled walker. She will then follow-up with [facility] for surgery 2 weeks postoperatively for reevaluation and staple removal. Physical Exam Vital Signs: Temp Pulse Resp BP Pulse Ox 36.6 C 96 20 128/65 H 96 10/23/17 23:57 10/23/17 23:57 10/23/17 23:57 10/23/17 23:57 10/23/17 23:57 Intake & Output 10/22/17 10/23/17 10/24/17 06:59 06:59 06:59 Intake Total 8278 Output Total 250 Balance 8028 Weight 76.2 kg General appearance: PRESENT: no acute distress, well-developed, well-nourished Head exam: PRESENT: atraumatic, normocephalic Respiratory exam: PRESENT: unlabored Pulses: PRESENT: normal dorsalis pedis pul, +2 pedal pulses bilateral Vascular exam: PRESENT: normal capillary refill Additional comments: Patient sitting in chair at the bedside this morning with bilateral lower extremities in 90 of flexion at the hip. She has minimal pedal edema and brisk capillary refill to toes on bilateral lower extremities. Her OpSite dressing is clean dry and intact and this is left in place. She is nontender to palpation. Her sensory motor functions are intact and her distal neurovascular exam is intact. Musculoskeletal exam: PRESENT: ambulatory Additional comments: Patient makes great progress with physical therapy ambulating 400 feet on postop day 0. Based on this progress she is functionally capable of being discharged. Therefore she will be discharged to her home today. She will continue to work with home physical therapy to continually improve strength range of motion of right lower extremity Neurological exam: PRESENT: alert, awake, oriented to person, oriented to place , oriented to time, oriented to situation, CN II-XII grossly intact. ABSENT: motor sensory deficit Psychiatric exam: PRESENT: appropriate affect, normal mood. ABSENT: homicidal ideation, suicidal ideation Skin exam: PRESENT: dry, intact, warm. ABSENT: cyanosis, rash Results Laboratory Results: 10/24/17 05:30 10/24/17 05:30 10/23/17 10/24/17 10/24/17 11:42 05:30 05:30 WBC 9.4 RBC 4.42 Hgb 12.5 Hct 36.9 MCV 84 MCH 28.2 MCHC 33.8 RDW 14.1 H Plt Count 215 Sodium 139.6 Potassium 4.5 Chloride 102 Carbon Dioxide 30 Anion Gap 8 BUN 16 Creatinine 0.66 Est GFR ( Amer) > 60 Est GFR (Non-Af Amer) > 60 Glucose 129 H Calcium 8.8 Blood Type O POSITIVE Antibody Screen NEGATIVE Impressions: Pelvis X-Ray 10/23/17 13:29 IMPRESSION: SATISFACTORY POSTOPERATIVE PELVIS. Plan Discharge Plan: 56-year-old white female one day status post total right hip arthroplasty revision. Patient has made great progress with physical therapy ambulating 400 feet on postop day 0. Based on this assessment as well as pain control patient is functionally capable of being discharged today. Therefore she will be discharged to her home with home physical therapy, home health nursing, and wheeled walker. She will continue to work with home PT to improve strength range of motion of right lower extremity. She will then follow-up with [facility] for surgery [address] Alonso and Gonzales Loza for reevaluation and staple removal. Time Spent: Less than 30 Minutes
[2017-10-24 08:43] VITALS: BP 100/60
[2017-10-24] MEDS ORDERED: ASPIRIN 81 MG TABLET, ENT COATED PO SCH (10:00)
[2017-10-24] MEDS ORDERED: DULOXETINE HCL 30 MG CAPSULE.DR PO SCH (10:00)
[2017-10-24] MEDS ORDERED: (PENDING PHARMACY ID) (Bupropion Hcl [Wellbutrin Sr 150 Mg Tablet] 150 MG) PO SCH (10:00)
== END 2017-10-24 09:24 | disposition home health service (06) | DRG 470 ==
LOC: INOR 10:59 → 4S 14:42
PROVIDERS: ADMIT Orthopaedic Surgery; ATTEND Orthopaedic Surgery
PROC: 0SR90JZ Replacement of Right Hip Joint with Synthetic Substitute, Open Approach (ICD-10-PCS; principal; 2017-10-23 13:00)
DX: T84.020A Dislocation of internal right hip prosthesis, initial encounter (principal); M16.11 Unilateral primary osteoarthritis, right hip; M79.7 Fibromyalgia; E03.9 Hypothyroidism, unspecified; Z79.899 Other long term (current) drug therapy; Z87.891 Personal history of nicotine dependence; Z88.2 Allergy status to sulfonamides; Z88.8 Allergy status to other drugs, medicaments and biological substances; Z90.710 Acquired absence of both cervix and uterus
CPT/HCPCS: 01215; 36415; 72170; 80048; 85027; 86850; 86900; 86901; 87070; 87075; 87205; 94799; C9290; G8978-GP; G8979-GP; G8987-GO; G8988-GO; J0131; J0690; J1100; J1170; J1200; J1741; J2250; J2270; J2405; J2704; J2765; J3010; J3370; J3490; J7050; J7060; J7120

== ENCOUNTER 2017-11-05 18:32 | Emergency (ER) | payer OTHER, MEDICARE ==
--- NOTE | 2017-11-05 19:23 | ER Document Report ---
ED Medical Screen (RME) - General Chief Complaint: Hip Pain Stated Complaint: FALL/HIP PAIN Time Seen by Provider: 11/05/17 19:17 Mode of Arrival: Wheelchair Information source: Patient TRAVEL OUTSIDE OF THE [place] IN LAST 30 DAYS: No - HPI Patient complains to provider of: R hip pain Onset: This morning - pt fell and has c/o R hip pain -- had recent surgery per Dr. Alonso - Related Data Allergies/Adverse Reactions: diclofenac [Diclofenac] Allergy (Intermediate, Verified 11/05/17 18:32) Hives Sulfa (Sulfonamide Antibiotics) Allergy (Intermediate, Verified 11/05/17 18:32) elevated WBC count, elevated B/P Past Medical History - Past Medical History Cardiac Medical History: Denies: Hx Coronary Artery Disease, Hx Heart Attack, Hx Hypercholesterolemia , Hx Hypertension Pulmonary Medical History: Denies: Hx Asthma, Hx Bronchitis, Hx COPD, Hx Pneumonia Neurological Medical History: Denies: Hx Cerebrovascular Accident, Hx Seizures Endocrine Medical History: Reports: Hx Hypothyroidism. Denies: Hx Graves' Disease, Hx Hyperthyroidism Renal/ Medical History: Denies: Hx Kidney Stones, Hx Peritoneal Dialysis GI Medical History: Denies: Hx Crohn's Disease, Hx Gastroesophageal Reflux Disease, Hx Hiatal Hernia, Hx Irritable Bowel, Hx Liver Failure, Hx Pancreatitis , Hx Ulcer Musculoskeltal Medical History: Denies Hx Arthritis, Reports Hx Fibromyalgia, Denies Hx Muscular Dystrophy Psychiatric Medical History: Reports: Hx Depression Traumatic Medical History: Denies: Hx Fractures Past Surgical History: Reports: Hx Section - X3, Hx Cholecystectomy, Hx Hysterectomy, Hx Orthopedic Surgery - left total hip replacement, Hx Tonsillectomy. Denies: Hx Appendectomy, Hx Bowel Surgery, Hx Colostomy, Hx Coronary Artery Bypass Graft, Hx Gastric Bypass Surgery, Hx Herniorrhaphy, Hx Pacemaker, Hx Tubal Ligation - Immunizations Hx Diphtheria, Pertussis, Tetanus Vaccination: Yes - <5years History of Influenza Vaccine for 06/2017 - 11/2017 Season: No Physical Exam - Vital signs Vitals: Temp Pulse Resp BP Pulse Ox 98.2 F 111 H 18 153/79 H 97 11/05/17 19:05 11/05/17 19:05 11/05/17 19:05 11/05/17 19:05 11/05/17 19:05 Course - Vital Signs Vital signs: Temp Pulse Resp BP Pulse Ox 98.2 F 111 H 18 153/79 H 97 11/05/17 19:05 11/05/17 19:05 11/05/17 19:05 11/05/17 19:05 11/05/17 19:05
[2017-11-05 20:36] LABS: ABSOLUTE EOSINOPHILS # (AUTO) 0.3 10^3/uL (0.0-0.6); ABSOLUTE LYMPHOCYTES (AUTO) 1.3 10^3/uL (0.5-4.7); ABSOLUTE MONOCYTES (AUTO) 0.7 10^3/uL (0.1-1.4); ABSOLUTE NEUT (AUTO) 5.9 10^3/uL (1.7-8.2); BASOPHILS % (AUTO) 0.5 % (0-2); EOSINOPHILS % (AUTO) 3.7 % (0-6); HEMATOCRIT 35.4 % (36.0-47.0); HEMOGLOBIN 11.9 g/dL (12.0-15.5); LYMPHOCYTES % (AUTO) 16.1 % (13-45); MEAN CORPUSCULAR HGB CONC 33.6 g/dL (32.0-36.0); MEAN CORPUSCULAR VOLUME 83 fl (80-97); MONOCYTES % (AUTO) 8.1 % (3-13); PLATELET COUNT 238 10^3/uL (150-450); RED BLOOD COUNT 4.25 10^6/uL (3.72-5.28); RED CELL DISTRIBUTION WIDTH 14.4 % (11.5-14.0); SEGMENTED NEUTROPHILS % (AUTO) 71.6 % (42-78); TOTAL CELLS COUNTED % (AUTO) 100 %; WHITE BLOOD COUNT 8.3 10^3/uL (4.0-10.5)
--- NOTE | 2017-11-05 20:43 | RADIOLOGY REPORT (SQ) ---
EXAM DESCRIPTION: HIP RIGHT AP/LATERAL COMPLETED DATE/TIME: 11/05/2017 8:25 pm REASON FOR STUDY: R hip pain COMPARISON: None. NUMBER OF VIEWS: Two views. TECHNIQUE: AP pelvis and additional frog-leg view of the right hip. LIMITATIONS: None. FINDINGS: MINERALIZATION: Normal. RIGHT HIP: Recent total hip replacement. Device appears well seated. LEFT HIP: Total hip replacement. Device appears well seated. PUBIS AND ISCHIUM: No fracture. PELVIS: No fracture. SACRUM: No fracture or dislocation. No worrisome bone lesions. LOWER LUMBAR SPINE: Postsurgical changes. SOFT TISSUES: No findings. OTHER: No other significant finding. IMPRESSION: Bilateral total hip replacement. Surgical changes lower lumbar spine. No unexpected fi ndings. TECHNICAL DOCUMENTATION: JOB ID: [id number] [employer]- All Rights Reserved
[2017-11-05 20:55] LABS: ALANINE AMINOTRANSFERASE 36 U/L (9-52); ALKALINE PHOSPHATASE 124 U/L (38-126); ANION GAP 9 (5-19); ASPARTATE AMINO TRANSFERASE 30 U/L (14-36); BILIRUBIN,DIRECT 0.1 mg/dL (0.0-0.4); BILIRUBIN,TOTAL 0.3 mg/dL (0.2-1.3); BLOOD UREA NITROGEN 21 mg/dL (7-20); CALCIUM 9.4 mg/dL (8.4-10.2); CARBON DIOXIDE 30 mmol/L (22-30); CHLORIDE 101 mmol/L (98-107); GLUCOSE 90 mg/dL (75-110); POTASSIUM 4.3 mmol/L (3.6-5.0); SODIUM 139.9 mmol/L (137-145); TOTAL PROTEIN 6.3 g/dL (6.3-8.2)
[2017-11-05] MEDS ORDERED: OXYCODONE-ACETAMINOPHEN 5-325 MG TABLET PO ONE (23:59)
--- NOTE | 2017-11-06 | ER Document Report ---
ED Hip Pain/Injury - General Chief Complaint: Hip Pain Stated Complaint: FALL/HIP PAIN Time Seen by Provider: 11/05/17 19:17 Mode of Arrival: Wheelchair Notes: Patient is a 56-year-old female that comes emergency department for chief complaint of pain to her right hip. She states that she tripped over a child and fell from standing, landed on her lower back/pelvis/right hip area. This happened this morning. She had a revision of her prosthetic hip on 10/23/[address] Alonso, she states over the past couple of days it has had a slightly reddish appearance and she is worried it might be infected because after the fall today the redness increased and the pain increased. She denies fever or chills. She is not on a blood thinner. She denies hitting her head or any other complaints at this time. TRAVEL OUTSIDE OF THE [place] IN LAST 30 DAYS: No - Related Data Allergies/Adverse Reactions: diclofenac [Diclofenac] Allergy (Intermediate, Verified 11/05/17 18:32) Hives Sulfa (Sulfonamide Antibiotics) Allergy (Intermediate, Verified 11/05/17 18:32) elevated WBC count, elevated B/P Past Medical History - General Information source: Patient - Social History Smoking Status: Never Smoker Chew tobacco use (# tins/day): No Frequency of alcohol use: Rare Drug Abuse: None Family History: Reviewed & Not Pertinent Patient has suicidal ideation: No Patient has homicidal ideation: No - Past Medical History Cardiac Medical History: Denies: Hx Coronary Artery Disease, Hx Heart Attack, Hx Hypercholesterolemia , Hx Hypertension Pulmonary Medical History: Denies: Hx Asthma, Hx Bronchitis, Hx COPD, Hx Pneumonia Neurological Medical History: Denies: Hx Cerebrovascular Accident, Hx Seizures Endocrine Medical History: Reports: Hx Hypothyroidism. Denies: Hx Graves' Disease, Hx Hyperthyroidism Renal/ Medical History: Denies: Hx Kidney Stones, Hx Peritoneal Dialysis GI Medical History: Denies: Hx Crohn's Disease, Hx Gastroesophageal Reflux Disease, Hx Hiatal Hernia, Hx Irritable Bowel, Hx Liver Failure, Hx Pancreatitis , Hx Ulcer Musculoskeltal Medical History: Denies Hx Arthritis, Reports Hx Fibromyalgia, Denies Hx Muscular Dystrophy Psychiatric Medical History: Reports: Hx Depression Traumatic Medical History: Denies: Hx Fractures Past Surgical History: Reports: Hx Section - X3, Hx Cholecystectomy, Hx Hysterectomy, Hx Orthopedic Surgery - left total hip replacement, Hx Tonsillectomy. Denies: Hx Appendectomy, Hx Bowel Surgery, Hx Colostomy, Hx Coronary Artery Bypass Graft, Hx Gastric Bypass Surgery, Hx Herniorrhaphy, Hx Pacemaker, Hx Tubal Ligation - Immunizations Hx Diphtheria, Pertussis, Tetanus Vaccination: Yes - <5years Review of Systems - Review of Systems Constitutional: No symptoms reported EENT: No symptoms reported Cardiovascular: No symptoms reported Respiratory: No symptoms reported Gastrointestinal: No symptoms reported Genitourinary: No symptoms reported Female Genitourinary: No symptoms reported Musculoskeletal: See HPI Skin: See HPI Hematologic/Lymphatic: No symptoms reported Neurological/Psychological: No symptoms reported Physical Exam - Vital signs Vitals: Temp Pulse Resp BP Pulse Ox 98.2 F 111 H 18 153/79 H 97 11/05/17 19:05 11/05/17 19:05 11/05/17 19:05 11/05/17 19:05 11/05/17 19:05 Interpretation: Normal - General General appearance: Appears well In distress: None - HEENT Head: Normocephalic, Atraumatic Eyes: Normal Pupils: PERRL - Respiratory Respiratory status: No respiratory distress Chest status: Nontender Breath sounds: Normal. No: Decreased air movement, Wheezing Chest palpation: Normal - Cardiovascular Rhythm: Regular. No: Tachycardia Heart sounds: Normal auscultation, S1 appreciated, S2 appreciated Murmur: No - Abdominal Inspection: Normal Distension: No distension Bowel sounds: Normal Tenderness: Nontender. No: Tender, Guarding Organomegaly: No organomegaly - Back Back: Normal, Nontender. No: Tender - Extremities General upper extremity: Normal inspection, Nontender, Normal strength, Normal temperature General lower extremity: Other - There are orestes over a surgical wound over the right proximal thigh, mild surrounding warmth, minimal erythema, no severe tenderness, no drainage, no foul odor. Normal knee, ankle, distal neurovascular exam. 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 On exam patient has mild warmth and tenderness but no significant erythema, drainage, no overt signs of infection. Patient is comfortable, especially after given oxycodone. No fever, tachycardia resolved, no hypotension. X-ray of the pelvis/hip are unremarkable. ESR barely outside of normal range, CRP is only mildly elevated. I called and spoke with Dr. Alonso, patient's surgeon and orthopedics monitor and storage bin tender, he feels that at this time patient can follow-up over the next 2 days with your scheduled appointment with return precautions. I discussed this with patient in detail, she states satisfaction and agreement. - Vital Signs Vital signs: Temp Pulse Resp BP Pulse Ox 98.4 F 91 18 122/68 96 11/06/17 01:22 11/06/17 01:22 11/06/17 01:22 11/06/17 01:22 11/06/17 01:22 - Laboratory Result Diagrams: 11/05/17 20:24 11/05/17 20:24 Laboratory results interpreted by me: 11/05/17 11/05/17 11/05/17 20:24 20:24 20:24 Hgb 11.9 L Hct 35.4 L RDW 14.4 H ESR 33 H BUN 21 H C-Reactive Protein 11/05/17 20:24 Hgb Hct RDW ESR BUN C-Reactive Protein 24.7 H Discharge - Discharge Clinical Impression: Right hip pain, Encounter for wound re-check Fall Qualifiers: Encounter type: initial encounter Qualified Code(s): W19.XXXA - Unspecified fall, initial encounter Condition: Stable Disposition: HOME, SELF-CARE Additional Instructions: Your x-ray does not show any new or concerning findings. Your evaluation and workup does not indicate obvious infection at this time. I spoke with Dr. Celeste jules, rest, take your medications, follow-up with him in a few days for recheck. Return if you worsen including fever of 100.4 or greater, developing or spreading redness, discolored discharge from the wound, or any other concerning symptoms. Referrals: JEFE WOOD, [Primary Care Provider] - Follow up as needed
[2017-11-06 01:23] VITALS: BP 122/68
== END 2017-11-06 01:50 | disposition home or self-care (01) ==
LOC: ER 18:32
DX: M25.551 Pain in right hip (principal); Z98.890 Other specified postprocedural states; Z96.643 Presence of artificial hip joint, bilateral; W01.0XXA Fall on same level from slipping, tripping and stumbling without subsequent striking against object, initial encounter; Y92.009 Unspecified place in unspecified non-institutional (private) residence as the place of occurrence of the external cause; Z88.3 Allergy status to other anti-infective agents; Z88.2 Allergy status to sulfonamides
CPT/HCPCS: 36415; 80053; 85025; 85652; 86140; 99283

== ENCOUNTER 2018-02-11 19:59 | Emergency (ER) | payer OTHER, MEDICARE ==
[2018-02-11 20:35] VITALS: BP 149/74
[2018-02-11] MEDS ORDERED: CYCLOBENZAPRINE HCL 10 MG TABLET PO ONE (21:08)
[2018-02-11] MEDS ORDERED: OXYCODONE-ACETAMINOPHEN 5-325 MG TABLET PO ONE (21:08)
--- NOTE | 2018-02-11 21:09 | ER Document Report ---
ED General - General Chief Complaint: Back Pain Stated Complaint: BACK PAIN Time Seen by Provider: 02/11/18 21:08 Mode of Arrival: Ambulatory Information source: Patient Notes: Patient is a 57-year-old female who presents to the ER today for chronic low back pain with an acute flare. Patient has a history of multiple back surgeries , fibromyalgia and degenerative joint disease. She usually takes Robaxin and tramadol, states that she was on a plane flight 3 days ago and her low back has "stiffened" since that time. Patient states that is very difficult to bend or turn at the hips due to low back pain and stiffness. She states that the Robaxin is not working. She denies any numbness or tingling, loss of bladder or bowel function. She denies any injury. TRAVEL OUTSIDE OF THE [place] IN LAST 30 DAYS: No - Related Data Allergies/Adverse Reactions: diclofenac [Diclofenac] Allergy (Intermediate, Verified 02/11/18 20:06) Hives Sulfa (Sulfonamide Antibiotics) Allergy (Intermediate, Verified 02/11/18 20:06) elevated WBC count, elevated B/P Past Medical History - General Information source: Patient - Social History Smoking Status: Unknown if Ever Smoked Family History: Reviewed & Not Pertinent - Past Medical History Cardiac Medical History: Denies: Hx Coronary Artery Disease, Hx Heart Attack, Hx Hypercholesterolemia , Hx Hypertension Pulmonary Medical History: Denies: Hx Asthma, Hx Bronchitis, Hx COPD, Hx Pneumonia Neurological Medical History: Denies: Hx Cerebrovascular Accident, Hx Seizures Endocrine Medical History: Reports: Hx Hypothyroidism. Denies: Hx Graves' Disease, Hx Hyperthyroidism Renal/ Medical History: Denies: Hx Kidney Stones, Hx Peritoneal Dialysis GI Medical History: Denies: Hx Crohn's Disease, Hx Gastroesophageal Reflux Disease, Hx Hiatal Hernia, Hx Irritable Bowel, Hx Liver Failure, Hx Pancreatitis , Hx Ulcer Musculoskeltal Medical History: Denies Hx Arthritis, Reports Hx Fibromyalgia, Denies Hx Muscular Dystrophy Psychiatric Medical History: Reports: Hx Depression Traumatic Medical History: Denies: Hx Fractures Past Surgical History: Reports: Hx Section - X3, Hx Cholecystectomy, Hx Hysterectomy, Hx Orthopedic Surgery - left total hip replacement, Hx Tonsillectomy. Denies: Hx Appendectomy, Hx Bowel Surgery, Hx Colostomy, Hx Coronary Artery Bypass Graft, Hx Gastric Bypass Surgery, Hx Herniorrhaphy, Hx Pacemaker, Hx Tubal Ligation - Immunizations Hx Diphtheria, Pertussis, Tetanus Vaccination: Yes - <5years Review of Systems - Review of Systems Constitutional: No symptoms reported EENT: No symptoms reported Cardiovascular: No symptoms reported Respiratory: No symptoms reported Gastrointestinal: No symptoms reported Genitourinary: No symptoms reported Female Genitourinary: No symptoms reported Musculoskeletal: See HPI Skin: No symptoms reported Hematologic/Lymphatic: No symptoms reported Neurological/Psychological: No symptoms reported Physical Exam - Vital signs Vitals: Temp Pulse Resp BP Pulse Ox 98.1 F 95 18 149/74 H 97 02/11/18 20:34 02/11/18 20:34 02/11/18 20:34 02/11/18 20:34 02/11/18 20:34 - Notes Notes: PHYSICAL EXAMINATION: GENERAL: Uncomfortable appearing, but in no acute distress. HEAD: Atraumatic, normocephalic. EYES: Pupils equal round and reactive to light, extraocular movements intact, sclera anicteric, conjunctiva are normal. NECK: Normal range of motion, supple without lymphadenopathy LUNGS: CTAB and equal. No wheezes rales or rhonchi. HEART: Regular rate and rhythm without murmurs ABDOMEN: Soft, no tenderness. No guarding, no rebound BACK: no vertebral tenderness, decreased ROM secondary to pain GI/: no CVA tenderness EXTREMITIES: Normal range of motion, no pitting edema. No cyanosis. NEUROLOGICAL: Cranial nerves grossly intact. Normal sensory/motor exams. PSYCH: Normal mood, normal affect. SKIN: Warm, Dry, normal turgor, no rashes or lesions noted Course - Re-evaluation Re-evalutation: 02/12/18 02:22 Patient will be started on Flexeril to see if she gets more relief from the muscle relaxer, advised not to take it with Robaxin. I see no reason for x- rays today as there is been no injury and this is a flare of patient's chronic pain. - Vital Signs Vital signs: Temp Pulse Resp BP Pulse Ox 98.1 F 95 18 149/74 H 97 02/11/18 20:34 02/11/18 20:34 02/11/18 20:34 02/11/18 20:34 02/11/18 20:34 Discharge - Discharge Clinical Impression: Chronic back pain Qualifiers: Back pain location: low back pain Back pain laterality: midline Sciatica presence: without sciatica Qualified Code(s): M54.5 - Low back pain Condition: Stable Disposition: HOME, SELF-CARE Additional Instructions: Return immediately for any new or worsening symptoms. Follow up with primary care provider, call tomorrow to make followup appointment. Prescriptions: Cyclobenzaprine HCl [Flexeril 10 mg Tablet] 10 mg PO TIDP PRN #15 tab PRN Reason: Referrals: JEFE WOOD DO [Primary Care Provider] - Follow up as needed
== END 2018-02-11 21:35 | disposition home or self-care (01) ==
LOC: ER 19:59
DX: M54.5 Low back pain (principal); G89.29 Other chronic pain; Z98.890 Other specified postprocedural states
CPT/HCPCS: 99283

== ENCOUNTER → 2018-02-25 | Outpatient (CLI) | payer OTHER ==
--- NOTE | 2018-02-25 16:02 | RADIOLOGY REPORT (SQ) ---
EXAM DESCRIPTION: MRI LT LOWER EXTREMITY WITHOUT COMPLETED DATE/TIME: 02/25/2018 10:38 am REASON FOR STUDY: PAIN COMPARISON: None. TECHNIQUE: Left ankle images acquired and stored on PACS. Multiplanar images include fat sensitive s equences as T1, fluid sensitive sequences as FST2/STIR, cartilage sensitive sequences as FSPD, and gr adient echo sequences. LIMITATIONS: Excessive motion. FINDINGS: BONE MARROW: No alteration of signal to suggest marrow replacement or edema. No occult fra cture. No large osteophytes. EFFUSIONS: No subtalar or tibiotalar effusions. No loose bodies. OSSEOUS ARTICULATIONS: Intact as visualized. TALAR DOME AND TIBIAL PLAFOND: Intact. Symmetric cartilage loss. ACHILLES TENDON: Intact without partial or full-thickness tear. No adjacent bursal fluid or edema. TIBIALIS ANTERIOR TENDON: Intact without edema at the 1st MT attachment. TIBIALIS POSTERIOR TENDON: Normal morphology and no edema at the navicular attachment. No tendon isaac th fluid. FLEXOR HALLUCIS LONGUS AND FLEXOR DIGITORUM TENDONS: Normal morphology and no tendon sheath fluid. No edema of the os trigonum. PERONEUS LONGUS AND BREVIS TENDON: Fluid in the tendon sheath at the malleolar fossa and inferior. C annot exclude a split tear of the peroneus brevis. ATFL, CFL, PTFL: Intact as visualized. DELTOID LIGAMENT: Intact as visualized. TARSAL TUNNEL: No masses. No muscle atrophy. SINUS TARSI: No fluid. No reactive marrow edema or erosions. PLANTAR FASCIA: No signal alteration or tear. ADJACENT SOFT TISSUES: No masses. OTHER: No other significant finding. IMPRESSION: Limited exam due to the degree of patient motion. Tenosynovitis with suspected split te ar of the peroneus brevis. TECHNICAL DOCUMENTATION: JOB ID: [id number] [employer]- All Rights Reserved Reading location - IP/workstation name: [email or web address]
--- NOTE | 2018-02-25 16:08 | RADIOLOGY REPORT (SQ) ---
EXAM DESCRIPTION: MRI LUMBAR SPINE WITHOUT COMPLETED DATE/TIME: 02/25/2018 10:38 am REASON FOR STUDY: PAIN COMPARISON: 01/17/2007 TECHNIQUE: Sagittal and Axial imaging includes T1, T2, STIR and gradient echo sequences. Coronal T2/ HASTE imaging. LIMITATIONS: Excessive motion. Metal artifact. FINDINGS: Studies very limited. Status post posterior fusion and prosthetic disc placement L1 throu gh 2 S1. Dorsal laminectomies at multiple levels with sparing of L5-S1. No significant residual spi nal stenosis. No obvious epidural fluid collection. No obvious acute disc herniation. No nerve remy t clumping. IMPRESSION: Limited exam. Extensive spinal instrumentation without evidence of postoperative compli cation, spinal stenosis or recurrent disc herniation. TECHNICAL DOCUMENTATION: JOB ID: [id number] [employer]- All Rights Reserved Reading location - IP/workstation name: [email or web address]
== END ==
LOC: RAD 09:10
PROVIDERS: ATTEND Family Medicine
DX: M54.5 Low back pain (principal); M65.872 Other synovitis and tenosynovitis, left ankle and foot; M79.672 Pain in left foot
CPT/HCPCS: 72148

== ENCOUNTER 2018-05-01 22:39 | Emergency (ER) | payer OTHER, MEDICARE ==
--- NOTE | 2018-05-02 01:22 | ER Document Report ---
ED Headache - General Chief Complaint: Headache Stated Complaint: SEVERE HEADACHES,FINGERTIP NUMBNESS Time Seen by Provider: 05/02/18 00:48 TRAVEL OUTSIDE OF THE [place] IN LAST 30 DAYS: No - HPI Patient complains to provider of: Other - 57-year-old female that presents for evaluation of posterior headache which she has had for several days after a fall last week. She did not hit her head during that time has not had any focal numbness or weakness notes that she does have some chronic back pain does have some episodes related to spinal fusion spinal stenosis for which she is being followed at the [facility]. She has tried all her home medications for this and they have only helped a little bit. Denies any focal numbness or weakness. The headache as a throbbing quality. - Related Data Allergies/Adverse Reactions: diclofenac [Diclofenac] Allergy (Intermediate, Verified 02/11/18 20:06) Hives Sulfa (Sulfonamide Antibiotics) Allergy (Intermediate, Verified 02/11/18 20:06) elevated WBC count, elevated B/P Past Medical History - General Information source: Patient - Social History Smoking Status: Current Every Day Smoker Cigarette use (# per day): Yes Chew tobacco use (# tins/day): No Smoking Education Provided: No Frequency of alcohol use: Occasional Drug Abuse: None Family History: Reviewed & Not Pertinent - Past Medical History Cardiac Medical History: Denies: Hx Coronary Artery Disease, Hx Heart Attack, Hx Hypercholesterolemia , Hx Hypertension Pulmonary Medical History: Denies: Hx Asthma, Hx Bronchitis, Hx COPD, Hx Pneumonia Neurological Medical History: Denies: Hx Cerebrovascular Accident, Hx Seizures Endocrine Medical History: Reports: Hx Hypothyroidism. Denies: Hx Graves' Disease, Hx Hyperthyroidism Renal/ Medical History: Denies: Hx Kidney Stones, Hx Peritoneal Dialysis GI Medical History: Denies: Hx Crohn's Disease, Hx Gastroesophageal Reflux Disease, Hx Hiatal Hernia, Hx Irritable Bowel, Hx Liver Failure, Hx Pancreatitis , Hx Ulcer Musculoskeletal Medical History: Denies Hx Arthritis, Reports Hx Fibromyalgia, Denies Hx Muscular Dystrophy Psychiatric Medical History: Reports: Hx Depression Traumatic Medical History: Denies: Hx Fractures Past Surgical History: Reports: Hx Section - X3, Hx Cholecystectomy, Hx Hysterectomy, Hx Orthopedic Surgery - left total hip replacement, Hx Tonsillectomy. Denies: Hx Appendectomy, Hx Bowel Surgery, Hx Colostomy, Hx Coronary Artery Bypass Graft, Hx Gastric Bypass Surgery, Hx Herniorrhaphy, Hx Pacemaker, Hx Tubal Ligation - Immunizations Hx Diphtheria, Pertussis, Tetanus Vaccination: Yes - <5years Review of Systems - Review of Systems -: Yes All other systems reviewed and negative Physical Exam - Vital signs Vitals: Temp Pulse Resp BP Pulse Ox 98.8 F 104 H 18 153/88 H 96 05/01/18 22:49 05/01/18 22:49 05/01/18 22:49 05/01/18 22:49 05/01/18 22:49 - General General appearance: Appears well In distress: None - HEENT Head: Normocephalic Eyes: Normal Conjunctiva: Normal Neck: Other - Pain in the neck - Respiratory Respiratory status: No respiratory distress Chest status: Nontender Breath sounds: Normal Chest palpation: Normal - Cardiovascular Rhythm: Regular Heart sounds: Normal auscultation Murmur: No - Abdominal Inspection: Normal Distension: No distension Bowel sounds: Normal Tenderness: Nontender - Back Back: Normal - Extremities General upper extremity: Normal inspection General lower extremity: Normal inspection Shoulder: Normal Arm: Normal Elbow: Normal Forearm: Normal - Neurological Neuro grossly intact: Yes Cognition: Normal Orientation: AAOx4 [place] Coma Scale Eye Opening: Spontaneous [place] Coma Scale Verbal: Oriented Speech: Normal - Skin Skin Temperature: Warm Course - Re-evaluation Re-evalutation: 05/02/18 03:49 This 57-year-old female presented for evaluation of neck pain as well as a low- grade headache at the behest of her [facility] clinician as she has had episodes in the past following a fall. She denies any loss of consciousness or focal numbness or weakness. She is concerned and called her primary physician who suggested comment. On examination the patient does have modest neck tenderness primarily over the prominence at C7, will obtain CT of the cervical spine. CT imaging of the cervical spine demonstrates possible lytic lesions patient does not have any known metastatic disease. Discussed with the patient the unknown seriousness of these lytic lesions in the cervical spine. Did discuss with her the narrowing of the canals which looks like it is the same as a [facility]. She will discuss this finding with her primary physician and schedule a bone scan. She is neurologically intact able to ambulate without assistance well-appearing will give a brief prescription course for [place] so that she is able to get some rest tonight. 05/02/18 04:57 - Vital Signs Vital signs: Temp Pulse Resp BP Pulse Ox 97.6 F 92 18 126/66 H 97 05/02/18 03:06 05/02/18 03:06 05/02/18 03:06 05/02/18 03:06 05/02/18 03:06 Discharge - Discharge Clinical Impression: Neck pain Headache Qualifiers: Headache type: tension-type Condition: Stable Disposition: HOME, SELF-CARE Instructions: Headache ([facility]) Additional Instructions: He was seen today in the emergency department for headache and neck pain. He had an evaluation including a CT of your neck, the CT did show a concern for relative lytic lesions in the cervical spine which were not obviously identified , they are uncertain whether or not these may represent some other disease. You should contact your doctor at the [facility] for consideration of a possible bone scan for the lesions in your neck. You did also have narrowing and chronic changes which were similar to your previous. Use the medications prescribed to you only as needed for your neck pain.
--- NOTE | 2018-05-02 01:50 | RADIOLOGY REPORT (SQ) ---
EXAM DESCRIPTION: CT CERVICAL SPINE WITHOUT IV CONTRAST COMPLETED DATE/TME: 05/02/2018 01:21 CLINICAL HISTORY: 57 years, Female, headache neck pain. Fell a week ago. COMPARISON: None. TECHNIQUE: 226 Images stored on PACS. All CT scanners at this facility use dose modulation, iterative reconstruction, and/or weight based dosing when appropriate to reduce radiation dose to as low as reasonably achievable (ALARA). [facility]: Dose Right [facility]: CareDose [facility]: Dose Right [facility]: Teradose 4D [facility]: FRUCT LIMITATIONS: None. FINDINGS: There is normal lordosis. Narrowing of cervical disc interspaces with subchondral sclerosis and small osteophytes. No acute fracture. There are nonspecific low-attenuation foci in the vertebral bodies particularly seen at C6, C7 and T1. If there is concern for metastatic disease recommend bone scan. Generalized disc bulging and osteophytosis at C3-4 with moderate narrowing of the central canal and severe neural foraminal narrowing. C4-5: Severe bilateral neural foraminal narrowing. C5-6: Severe narrowing of the neural foramina. C6-7: Mild neural foraminal stenosis. No acute fracture. Apical scarring in the chest. IMPRESSION: Multilevel degenerative change as described Moderate central canal stenosis at C3-4 No evidence of fracture Relative lytic areas in the osseous structures which are nonspecific. If there is concern for metastatic disease recommend bone scan TECHNICAL DOCUMENTATION: Quality ID # [id number]: Final reports with documentation of one or more dose reduction techniques (e.g., Automated exposure control, adjustment of the mA and/or kV according to patient size, use of iterative reconstruction technique) 2010 [employer]- All Rights Reserved
[2018-05-02] MEDS ORDERED: HYDROCODONE/ACETAMINOPHEN 5-325 MG (6 TAB/ER DISP) PO PRN (02:41)
[2018-05-02 03:08] VITALS: BP 126/66
== END 2018-05-02 03:29 | disposition home or self-care (01) ==
LOC: ER 22:39
DX: G44.209 Tension-type headache, unspecified, not intractable (principal); M54.2 Cervicalgia; M54.9 Dorsalgia, unspecified; G89.29 Other chronic pain; F17.210 Nicotine dependence, cigarettes, uncomplicated
CPT/HCPCS: 72125; 99284

== ENCOUNTER 2018-05-03 12:05 | Emergency (ER) | payer OTHER, MEDICARE ==
--- NOTE | 2018-05-03 13:27 | ER Document Report ---
ED General - General Chief Complaint: Headache Stated Complaint: HEADACHES Time Seen by Provider: 05/03/18 13:08 TRAVEL OUTSIDE OF THE [place] IN LAST 30 DAYS: No - HPI Notes: Patient fell a week and a half ago after she was getting out of shower, hit her head. Since that time she has had neck and headaches. Was seen in the ER 2 days ago, cervical spine CT was done which is negative. Patient was seen at the [facility] today, they want her to get a CT of her head. Patient is denying any focal neurological deficits. Denies any headaches. [facility] since she did fall week and a half ago. Denies fevers, chills, chest pain,palpitations, shortness of breath, dyspnea, nausea, vomiting, diarrhea, abdominal pain, hematuria,blurred vision, double vision, loss of vision, speech changes, LH, dizziness, syncope, headaches, wheezing, ST , URI, neck pain, weakness, bowel or bladder dysfunction, saddle anesthesia, numbness or tingling in bilateral upper or lower extremities equally, muscle paralysis, weakness in bilateral upper or lower extremities equally or rash. Denies IV drug use. - Related Data Allergies/Adverse Reactions: diclofenac [Diclofenac] Allergy (Intermediate, Verified 05/03/18 12:07) Hives Sulfa (Sulfonamide Antibiotics) Allergy (Intermediate, Verified 05/03/18 12:07) elevated WBC count, elevated B/P Past Medical History - General Information source: Patient - Social History Smoking Status: Unknown if Ever Smoked Family History: Reviewed & Not Pertinent - Past Medical History Cardiac Medical History: Denies: Hx Coronary Artery Disease, Hx Heart Attack, Hx Hypercholesterolemia , Hx Hypertension Pulmonary Medical History: Denies: Hx Asthma, Hx Bronchitis, Hx COPD, Hx Pneumonia Neurological Medical History: Denies: Hx Cerebrovascular Accident, Hx Seizures Endocrine Medical History: Reports: Hx Hypothyroidism. Denies: Hx Graves' Disease, Hx Hyperthyroidism Renal/ Medical History: Denies: Hx Kidney Stones, Hx Peritoneal Dialysis GI Medical History: Denies: Hx Crohn's Disease, Hx Gastroesophageal Reflux Disease, Hx Hiatal Hernia, Hx Irritable Bowel, Hx Liver Failure, Hx Pancreatitis , Hx Ulcer Musculoskeletal Medical History: Denies Hx Arthritis, Reports Hx Fibromyalgia, Denies Hx Muscular Dystrophy Psychiatric Medical History: Reports: Hx Depression Traumatic Medical History: Denies: Hx Fractures Past Surgical History: Reports: Hx Section - X3, Hx Cholecystectomy, Hx Hysterectomy, Hx Orthopedic Surgery - left total hip replacement, Hx Tonsillectomy. Denies: Hx Appendectomy, Hx Bowel Surgery, Hx Colostomy, Hx Coronary Artery Bypass Graft, Hx Gastric Bypass Surgery, Hx Herniorrhaphy, Hx Pacemaker, Hx Tubal Ligation - Immunizations Hx Diphtheria, Pertussis, Tetanus Vaccination: Yes - <5years Review of Systems - Review of Systems Constitutional: No symptoms reported EENT: No symptoms reported Cardiovascular: No symptoms reported Respiratory: No symptoms reported Gastrointestinal: No symptoms reported Genitourinary: No symptoms reported Female Genitourinary: No symptoms reported Musculoskeletal: No symptoms reported Skin: No symptoms reported Hematologic/Lymphatic: No symptoms reported Neurological/Psychological: No symptoms reported Physical Exam - Vital signs Vitals: Temp Pulse Resp BP Pulse Ox 97.8 F 104 H 20 152/85 H 95 05/03/18 12:20 05/03/18 12:20 05/03/18 12:20 05/03/18 12:20 05/03/18 12:20 - Notes Notes: PHYSICAL EXAMINATION: GENERAL: Well-appearing, well-nourished and in no acute distress. HEAD: Atraumatic, normocephalic. EYES: Pupils equal round and reactive to light, extraocular movements intact, conjunctiva are normal. ENT: Nares patent, oropharynx clear without exudates. Moist mucous membranes. NECK: Normal range of motion, supple without lymphadenopathy LUNGS: Breath sounds clear to auscultation bilaterally and equal. No wheezes rales or rhonchi. HEART: Regular rate and rhythm without murmurs ABDOMEN: Soft, nontender, nondistended abdomen. No guarding, no rebound. No masses appreciated. Female : deferred Musculoskeletal: Normal range of motion, no pitting or edema. No cyanosis. NEUROLOGICAL: PERRLA, EOMI. Full motor and sensory function throughout. [employer] + 2 equal bilaterally in BUE. Tongue midline. No pronator drift. No ataxia. Neck with APROM. Raises eyebrows. Strength is 5 out of 5 in bilateral upper and lower extremities equally.Speaks in full sentences. No weakness on one side. Romberg gait steady able to walk straight line. Able to recall 5 objects. PSYCH: Normal mood, normal affect. SKIN: Warm, Dry, normal turgor, no rashes or lesions noted. Course - Re-evaluation Re-evalutation: 05/03/18 15:11 57-year-old female afebrile vitals stable and in no distress presents for evaluation of a closed head injury a week and a half ago, patient was evaluated on Monday for cervical pain, patient states that this has resolved [facility] stated that she had a CT of the head and center to the ER for this to be completed. Patient denies any focal neurological deficit. Patient states he does have a history of headaches. CT head negative for any acute stroke. Low suspicion for acute glaucoma, temporal arteritis, meningitis, intracranial hemorrhage, ischemic stroke thus I consider the discharge disposition reasonable I have reevaluated this patient multiple times and no significant life threatening changes, no signs of toxicity, sepsis or peritonitis are noted. The patient and I have discussed the diagnosis and risks, and we agree with discharging home and close follow-up. We also discussed returning to the Emergency Department immediately if new or worsening symptoms occur with the understanding that symptoms and presentations can change. At this time will discharge with return precautions and follow-up recommendations. Verbal discharge instructions given a the bedside and opportunity for questions given. We have discussed the symptoms which are most concerning (e.g., changing or worsening symptoms, new numbness or weakness, vomiting, fever) that necessitate immediate return. Medication warnings reviewed. All questions and concerns answered by this provider. Patient is in agreement with this plan and has verbalized understanding of return precautions and the need for primary care follow-up in the next 24-72 hours. Patient verbalized understanding of plan of care and agree with plan of care. - Vital Signs Vital signs: Temp Pulse Resp BP Pulse Ox 97.8 F 104 H 20 152/85 H 95 05/03/18 12:20 05/03/18 12:20 05/03/18 12:20 05/03/18 12:20 05/03/18 12:20 Discharge - Discharge Clinical Impression: Closed head injury Qualifiers: Encounter type: initial encounter Qualified Code(s): S09.90XA - Unspecified injury of head, initial encounter Condition: Stable Disposition: HOME, SELF-CARE Instructions: Headache ([facility]) Additional Instructions: the ct of your head was negative. Follow-up with her primary care providers. Patient return to the ER if you experience any numbness tingling speech changes , headache, confusion, chest pain, call 911 immediately Return immediately for any new or worsening symptoms. Follow up with primary care provider, call tomorrow to make followup appointment. Referrals: VILMA SHARMA MD [ACTIVE STAFF] - Follow up in 3-5 days (prn )
--- NOTE | 2018-05-03 14:07 | RADIOLOGY REPORT (SQ) ---
EXAM DESCRIPTION: CT HEAD WITHOUT COMPLETED DATE/TIME: 05/03/2018 1:52 pm REASON FOR STUDY: s/p fall, has headache COMPARISON: CT brain 03/27/2010 TECHNIQUE: Axial images acquired through the brain without intravenous contrast. Images reviewed wi th bone, brain and subdural windows. Additional sagittal and coronal reconstructions were generated. Images stored on PACS. All CT scanners at this facility use dose modulation, iterative reconstruction, and/or weight based d osing when appropriate to reduce radiation dose to as low as reasonably achievable (ALARA). [facility]: Dose Right [facility]: CareDose [facility]: Dose Right [facility]: Teradose 4D [facility]: AgroSavfe RADIATION DOSE: CT Rad equipment meets quality standard of care and radiation dose reduction techniq ues were employed. CTDIvol: 53.2 mGy. DLP: 1044 mGy-cm. mGy. LIMITATIONS: None. FINDINGS: VENTRICLES: Normal size and contour. CEREBRUM: No masses. No hemorrhage. No midline shift. No evidence for acute infarction. Normal gra y/white matter differentiation. No areas of low density in the white matter. CEREBELLUM: No masses. No hemorrhage. No alteration of density. No evidence for acute infarction. EXTRAAXIAL SPACES: No fluid collections. 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 This is unchanged from CT brain 2009, and is of doubtful clinical si gnificance. ORBITS AND GLOBE: No intra- or extraconal masses. Normal contour of globe without masses. CALVARIUM: No fracture. PARANASAL SINUSES: No fluid or mucosal thickening. SOFT TISSUES: No mass or hematoma. OTHER: No other significant finding. IMPRESSION: No acute findings EVIDENCE OF ACUTE STROKE: NO. COMMENT: Quality ID # 436: Final reports with documentation of one or more dose reduction techniques (e.g., Automated exposure control, adjustment of the mA and/or kV according to patient size, use of iterative reconstruction technique) TECHNICAL DOCUMENTATION: JOB ID: [id number] [employer]- All Rights Reserved Reading location - IP/workstation name: [email or web address]
[2018-05-03 15:11] VITALS: BP 143/80
== END 2018-05-03 15:15 | disposition home or self-care (01) ==
LOC: ER 12:05
DX: S09.90XA Unspecified injury of head, initial encounter (principal); W01.10XA Fall on same level from slipping, tripping and stumbling with subsequent striking against unspecified object, initial encounter; Y93.E1 Activity, personal bathing and showering; Z96.642 Presence of left artificial hip joint; Z90.710 Acquired absence of both cervix and uterus; Z90.49 Acquired absence of other specified parts of digestive tract
CPT/HCPCS: 70450; 99283

== ENCOUNTER → 2018-05-15 | Outpatient (CLI) | payer MEDICARE ==
--- NOTE | 2018-05-15 10:38 | RADIOLOGY REPORT (SQ) ---
EXAM DESCRIPTION: ANKLE RIGHT COMPLETE COMPLETED DATE/TIME: 05/15/2018 10:11 am REASON FOR STUDY: RT ANKLE PAIN,UNSPECIFIED CHRONICITY M25.571 PAIN IN RIGHT ANKLE AND JOINTS OF RI GHT FOOT COMPARISON: None. NUMBER OF VIEWS: Three views. TECHNIQUE: AP, lateral, and oblique radiographic images acquired of the right ankle. LIMITATIONS: None. FINDINGS: MINERALIZATION: Normal. BONES: No acute fracture or dislocation. No worrisome bone lesions. JOINTS: No ankle joint malalignment on mortise view. No effusion on the lateral view. SOFT TISSUES: No soft tissue swelling. No foreign body. OTHER: No other significant finding. IMPRESSION: NEGATIVE STUDY OF THE RIGHT ANKLE. NO RADIOGRAPHIC EVIDENCE OF ACUTE INJURY. TECHNICAL DOCUMENTATION: JOB ID: [id number] [employer]- All Rights Reserved Reading location - IP/workstation name: [email or web address]
== END ==
LOC: OD 09:55
PROVIDERS: ATTEND Family Medicine
DX: M25.571 Pain in right ankle and joints of right foot (principal)

== ENCOUNTER 2018-05-17 13:36 | Emergency (ER) | payer OTHER, MEDICARE ==
[2018-05-17] MEDS ORDERED: ASPIRIN 81 MG TABLET, CHEWABLE PO ONE (14:27)
[2018-05-17] MEDS ORDERED: NORMAL SALINE 1000 ML 1,000 ML IV ONE (14:27)
--- NOTE | 2018-05-17 14:31 | ER Document Report ---
ED Medical Screen (RME) - General Chief Complaint: High Blood Pressure Stated Complaint: SHORTNESS OF BREATH Time Seen by Provider: 05/17/18 14:23 TRAVEL OUTSIDE OF THE [place] IN LAST 30 DAYS: No - HPI Notes: 05/17/18 14:30 Short of breath with strong smelling urine feeling unwell for approximately 24 hours although she may PCP yesterday for normal follow-up - Related Data Allergies/Adverse Reactions: diclofenac [Diclofenac] Allergy (Intermediate, Verified 05/17/18 13:38) Hives Sulfa (Sulfonamide Antibiotics) Allergy (Intermediate, Verified 05/17/18 13:38) elevated WBC count, elevated B/P Past Medical History - Social History Chew tobacco use (# tins/day): No Drug Abuse: None - Past Medical History Cardiac Medical History: Denies: Hx Coronary Artery Disease, Hx Heart Attack, Hx Hypercholesterolemia , Hx Hypertension Pulmonary Medical History: Denies: Hx Asthma, Hx Bronchitis, Hx COPD, Hx Pneumonia Neurological Medical History: Denies: Hx Cerebrovascular Accident, Hx Seizures Endocrine Medical History: Reports: Hx Hypothyroidism. Denies: Hx Graves' Disease, Hx Hyperthyroidism Renal/ Medical History: Denies: Hx Kidney Stones, Hx Peritoneal Dialysis GI Medical History: Denies: Hx Crohn's Disease, Hx Gastroesophageal Reflux Disease, Hx Hiatal Hernia, Hx Irritable Bowel, Hx Liver Failure, Hx Pancreatitis , Hx Ulcer Musculoskeltal Medical History: Denies Hx Arthritis, Reports Hx Fibromyalgia, Denies Hx Muscular Dystrophy Psychiatric Medical History: Reports: Hx Depression Traumatic Medical History: Denies: Hx Fractures Past Surgical History: Reports: Hx Section - X3, Hx Cholecystectomy, Hx Hysterectomy, Hx Orthopedic Surgery - left total hip replacement, Hx Tonsillectomy. Denies: Hx Appendectomy, Hx Bowel Surgery, Hx Colostomy, Hx Coronary Artery Bypass Graft, Hx Gastric Bypass Surgery, Hx Herniorrhaphy, Hx Pacemaker, Hx Tubal Ligation - Immunizations Hx Diphtheria, Pertussis, Tetanus Vaccination: Yes - <5years History of Influenza Vaccine for 06/2017 - 11/2017 Season: No Review of Systems - Review of Systems Respiratory: Short of breath Genitourinary: Frequency Physical Exam - Vital signs Vitals: Temp Pulse Resp BP Pulse Ox 99.3 F 128 H 28 H 148/102 H 100 05/17/18 13:50 05/17/18 13:50 05/17/18 13:50 05/17/18 13:50 05/17/18 13:50 - Respiratory Respiratory status: No respiratory distress Chest status: Nontender Breath sounds: Normal Chest palpation: Normal - Cardiovascular Rhythm: Regular, Tachycardia Course - Vital Signs Vital signs: Temp Pulse Resp BP Pulse Ox 99.3 F 128 H 28 H 148/102 H 100 05/17/18 13:50 05/17/18 13:50 05/17/18 13:50 05/17/18 13:50 05/17/18 13:50 Doctor's Discharge - Discharge Referrals: JEFE WOOD DO [Primary Care Provider] - Follow up as needed
[2018-05-17 14:50] LABS: ABSOLUTE EOSINOPHILS # (AUTO) 0.1 10^3/uL (0.0-0.6); ABSOLUTE LYMPHOCYTES (AUTO) 2.9 10^3/uL (0.5-4.7); ABSOLUTE MONOCYTES (AUTO) 1.1 10^3/uL (0.1-1.4); ABSOLUTE NEUT (AUTO) 5.6 10^3/uL (1.7-8.2); BASOPHILS % (AUTO) 0.5 % (0-2); EOSINOPHILS % (AUTO) 1.5 % (0-6); HEMATOCRIT 49.1 % (36.0-47.0); HEMOGLOBIN 16.9 g/dL (12.0-15.5); LYMPHOCYTES % (AUTO) 29.5 % (13-45); MEAN CORPUSCULAR HGB CONC 34.5 g/dL (32.0-36.0); MEAN CORPUSCULAR VOLUME 81 fl (80-97); MONOCYTES % (AUTO) 10.9 % (3-13); PLATELET COUNT 266 10^3/uL (150-450); RED BLOOD COUNT 6.04 10^6/uL (3.72-5.28); RED CELL DISTRIBUTION WIDTH 15.1 % (11.5-14.0); SEGMENTED NEUTROPHILS % (AUTO) 57.6 % (42-78); TOTAL CELLS COUNTED % (AUTO) 100 %; WHITE BLOOD COUNT 9.8 10^3/uL (4.0-10.5)
[2018-05-17 15:03] LABS: ALANINE AMINOTRANSFERASE 37 U/L (9-52); ALBUMIN 4.8 g/dL (3.5-5.0); ALKALINE PHOSPHATASE 164 U/L (38-126); ANION GAP 18 (5-19); ASPARTATE AMINO TRANSFERASE 38 U/L (14-36); BILIRUBIN,DIRECT 0.2 mg/dL (0.0-0.4); BILIRUBIN,TOTAL 0.8 mg/dL (0.2-1.3); BLOOD UREA NITROGEN 11 mg/dL (7-20); CARBON DIOXIDE 22 mmol/L (22-30); CHLORIDE 104 mmol/L (98-107); CREATINE KINASE 97 U/L (30-135); GLUCOSE 104 mg/dL (75-110); LIPASE 30.1 U/L (23-300); POTASSIUM 3.9 mmol/L (3.6-5.0); SODIUM 143.6 mmol/L (137-145); TOTAL PROTEIN 8.3 g/dL (6.3-8.2)
--- NOTE | 2018-05-17 15:07 | RADIOLOGY REPORT (SQ) ---
EXAM DESCRIPTION: CHEST SINGLE VIEW COMPLETED DATE/TIME: 05/17/2018 3:00 pm REASON FOR STUDY: sob COMPARISON: None. EXAM PARAMETERS: NUMBER OF VIEWS: One view. TECHNIQUE: Single frontal radiographic view of the chest acquired. RADIATION DOSE: NA LIMITATIONS: None. FINDINGS: LUNGS AND PLEURA: No opacities, masses or pneumothorax. No pleural effusion. MEDIASTINUM AND HILAR STRUCTURES: No masses. Contour normal. HEART AND VASCULAR STRUCTURES: Heart normal in size. Normal vasculature. BONES: No acute findings. HARDWARE: None in the chest. OTHER: No other significant finding. IMPRESSION: NO ACUTE RADIOGRAPHIC FINDING IN THE CHEST. TECHNICAL DOCUMENTATION: JOB ID: [id number] [employer]- All Rights Reserved Reading location - IP/workstation name: [email or web address]
[2018-05-17 15:15] LABS: CREATINE KINASE MB 1.67 ng/mL (<4.55); NT PRO BNP 186 pg/mL (5-900)
[2018-05-17 15:16] LABS: TROPONIN I < 0.012 ng/mL
[2018-05-17] MEDS ORDERED: ADENOSINE INJ/PF 6 MG/2 ML SDV IV ONE (15:29)
[2018-05-17] MEDS ORDERED: LORAZEPAM INJ 2 MG/1 ML VIAL ONE (15:32)
--- NOTE | 2018-05-17 15:49 | ER Document Report ---
ED General - General Chief Complaint: High Blood Pressure Stated Complaint: SHORTNESS OF BREATH Time Seen by Provider: 05/17/18 14:23 Mode of Arrival: Ambulatory Information source: Patient Notes: This is a 57-year-old female with a history of chronic back pain, fibromyalgia, depression who was usual state of health until approximately 9:30 AM yesterday when she started to get an ammonia smell in her urine, started having chills, nonproductive cough and chest wall pain. Patient states her pain gets worse with palpation and movement. Patient denies any recent exertional chest pain or shortness of breath. Her symptoms are clearly exacerbated by torso movement and palpation of the chest wall. TRAVEL OUTSIDE OF THE [place] IN LAST 30 DAYS: No - HPI Onset: Yesterday Onset/Duration: Gradual Quality of pain: Dull Severity: Moderate Pain Level: 3 Associated symptoms: Chills, Nonproductive cough, Hurts to breath, Shortness of breath Exacerbated by: Movement Relieved by: Remaining still Similar symptoms previously: Yes Recently seen / treated by doctor: Yes - Related Data Allergies/Adverse Reactions: diclofenac [Diclofenac] Allergy (Intermediate, Verified 05/17/18 13:38) Hives Sulfa (Sulfonamide Antibiotics) Allergy (Intermediate, Verified 05/17/18 13:38) elevated WBC count, elevated B/P Past Medical History - General Information source: Patient - Social History Smoking Status: Former Smoker Cigarette use (# per day): No Chew tobacco use (# tins/day): No Drug Abuse: None Lives with: Family Family History: Reviewed & Not Pertinent Patient has suicidal ideation: No Patient has homicidal ideation: No - Past Medical History Cardiac Medical History: Denies: Hx Coronary Artery Disease, Hx Heart Attack, Hx Hypercholesterolemia , Hx Hypertension Pulmonary Medical History: Denies: Hx Asthma, Hx Bronchitis, Hx COPD, Hx Pneumonia Neurological Medical History: Denies: Hx Cerebrovascular Accident, Hx Seizures Endocrine Medical History: Reports: Hx Hypothyroidism. Denies: Hx Graves' Disease, Hx Hyperthyroidism Renal/ Medical History: Denies: Hx Kidney Stones, Hx Peritoneal Dialysis GI Medical History: Denies: Hx Crohn's Disease, Hx Gastroesophageal Reflux Disease, Hx Hiatal Hernia, Hx Irritable Bowel, Hx Liver Failure, Hx Pancreatitis , Hx Ulcer Musculoskeletal Medical History: Denies Hx Arthritis, Reports Hx Fibromyalgia, Denies Hx Muscular Dystrophy Psychiatric Medical History: Reports: Hx Depression Traumatic Medical History: Denies: Hx Fractures Past Surgical History: Reports: Hx Section - X3, Hx Cholecystectomy, Hx Hysterectomy, Hx Orthopedic Surgery - left total hip replacement, Hx Tonsillectomy. Denies: Hx Appendectomy, Hx Bowel Surgery, Hx Colostomy, Hx Coronary Artery Bypass Graft, Hx Gastric Bypass Surgery, Hx Herniorrhaphy, Hx Pacemaker, Hx Tubal Ligation - Immunizations Hx Diphtheria, Pertussis, Tetanus Vaccination: Yes - <5years Review of Systems - Review of Systems Constitutional: denies: Chills, Fever EENT: No symptoms reported Cardiovascular: No symptoms reported, Chest pain, Palpitations Respiratory: Cough, Short of breath. denies: Hemoptysis Gastrointestinal: Nausea. denies: Abdominal pain, Diarrhea, Vomiting Genitourinary: See HPI Female Genitourinary: No symptoms reported Musculoskeletal: Back pain. denies: Joint swelling, Leg swelling Skin: No symptoms reported Hematologic/Lymphatic: No symptoms reported Neurological/Psychological: No symptoms reported Physical Exam - Vital signs Vitals: Temp Pulse Resp BP Pulse Ox 99.3 F 128 H 28 H 148/102 H 100 05/17/18 13:50 05/17/18 13:50 05/17/18 13:50 05/17/18 13:50 05/17/18 13:50 Notes: Physical exam: GENERAL: The 57-year-old female, planing of shaking chills, she is alert and oriented 3, she is tachycardic, does appear to be in SVT on the monitor with a rate of 180, her oxygen saturation is 100% on room air. Her temperature is 99.9 rectally. HEAD: Atraumatic, normocephalic. EYES: Pupils equal round and reactive to light, extraocular movements intact, sclera anicteric, conjunctiva are normal. ENT: TMs normal, nares patent, oropharynx clear without exudates. Moist mucous membranes. NECK: Normal range of motion, supple without obvious mass or JVD. LUNGS: Breath sounds clear to auscultation bilaterally and equal. No wheezes rales or rhonchi. HEART: Tachycardic without murmurs, rubs or gallops. ABDOMEN: Soft, normoactive bowel sounds. No tenderness to palpation. No guarding, no rebound. No masses appreciated. Rectal exam: No masses. EXTREMITIES: Normal range of motion, no pitting or edema. No clubbing or cyanosis. NEUROLOGICAL: Cranial nerves II through XII grossly intact. Normal speech, moving all extremities. PSYCH: Normal mood, normal affect. SKIN: Warm, Dry, normal turgor, no rashes or lesions noted. Course - Re-evaluation Re-evalutation: 05/17/18 15:48 Note: Patient did have an episode of SVT with rates in the 180 range. Valsalva maneuvers were performed without any effect. While we were setting up to give adenosine, she spontaneously converted. 05/17/18 20:05 She was given IV fluids, IV Ativan for anxiousness/shivering. She was given IV Dilaudid (a small amount) for an exacerbation of chronic back pain that she has been having. She did have a CTA of the chest which ruled out PE. I had a long conversation with the patient guarding the incidental findings. She is very anxious about the possibility of metastatic disease. She has spoken to Dr. Bustillos about this and is undergoing a workup. I did tell her that there was no evidence of cancer on the long CT. The incidental finding was 2 lesions in the liver which she had already known about. She is to get an outpatient MRI as well as bone scan. She was significantly comfortable on discharge home. Her repeat lung exam was clear, as her O2 sat was 98% on room air. Her heart rate was 86. - Vital Signs Vital signs: Temp Pulse Resp BP Pulse Ox 98.7 F 101 H 18 137/86 H 98 05/17/18 19:12 05/17/18 19:12 05/17/18 19:12 05/17/18 19:12 05/17/18 19:12 - Laboratory Result Diagrams: 05/17/18 14:38 05/17/18 14:38 Laboratory results interpreted by me: 05/17/18 05/17/18 14:38 14:38 RBC 6.04 H Hgb 16.9 H Hct 49.1 H RDW 15.1 H AST 38 H Alkaline Phosphatase 164 H Total Protein 8.3 H - Diagnostic Test Radiology reviewed: Image reviewed - EKG shows sinus tachycardia with a ventricular rate of 113, no acute ST-T wave changes. QTC is 456. Discharge - Discharge Clinical Impression: Acute bronchitis, SVT Condition: Stable Disposition: HOME, SELF-CARE Additional Instructions: As we discussed, the CAT scan of the chest showed no evidence of blood clots, pneumonia or cancer to the lung. There was an incidental finding of some lesions in the liver which you already know about. Your labs look very good. Your symptoms are consistent with an acute bronchitis. Plan: Drink plenty of fluids, take the inhaler as needed, take pain medicine as needed. Follow-up with your primary care doctor (Dr. Bustillos) for further workup of the liver lesions. Return to the emergency room for worsening pain, shortness of breath or any concerns or getting worse. Prescriptions: Morphine Sulfate [Morphine Ir 15 Mg Tablet] 15 mg PO Q6HP PRN #20 tablet PRN Reason: Albuterol Sulfate [Proair HFA Inhalation Aerosol 8.5 gm MDI] 2 puff IH Q4H PRN # 1 mdi PRN Reason: Referrals: JEFE BUSTILLOS DO [Primary Care Provider] - Follow up in 3-5 days
[2018-05-17] MEDS ORDERED: LORAZEPAM INJ 2 MG/1 ML VIAL IV ONE (15:54)
[2018-05-17] MEDS ORDERED: HYDROMORPHONE HCL INJ/PF 2 MG/ML AMPULE IV ONE (15:55)
[2018-05-17] MEDS ORDERED: ACETAMINOPHEN 325 MG TABLET ONE (16:00)
[2018-05-17] MEDS ORDERED: ACETAMINOPHEN 325 MG TABLET PO ONE (16:01)
--- NOTE | 2018-05-17 17:04 | RADIOLOGY REPORT (SQ) ---
EXAM DESCRIPTION: CTA CHEST COMPLETED DATE/TIME: 05/17/2018 4:47 pm REASON FOR STUDY: chest wall pain, INCREASED BP, SOB COMPARISON: Portable chest dated 05/17/2018 TECHNIQUE: CT scan of the chest performed using helical scanning technique with dynamic intravenous contrast injection. Images reviewed with lung, soft tissue and bone windows. Reconstructed coronal and sagittal MPR images reviewed. Additional 3 dimensional post-processing performed to develop Maximal Intensity Projection images (IL P). All images stored on PACS. All CT scanners at this facility use dose modulation, iterative reconstruction, and/or weight based d osing when appropriate to reduce radiation dose to as low as reasonably achievable (ALARA). [facility]: Dose Right [facility]: CareDose [facility]: Dose Right [facility]: Teradose 4D [facility]: ExtraOrtho CONTRAST TYPE AND DOSE: 32.74 73 mL Omnipaque 350 Contrast bolus optimized for the pulmonary arteries. Not diagnostic for the aorta. RENAL FUNCTION: Creatinine 0.69 RADIATION DOSE: . LIMITATIONS: None. FINDINGS: LUNGS AND PLEURA: No masses, infiltrates, or pneumothorax. No pleural effusions. Calcifi ed granuloma is identified in the left lower lung field. Bilateral apical pleural scarring is identi fied. AORTA AND GREAT VESSELS: No aneurysm. Contrast bolus not optimized for the aorta. HEART: No pericardial effusion. No significant coronary artery calcifications. PULMONARY ARTERIES: No emboli visualized in the main pulmonary arteries or the segmental branches. HILAR AND MEDIASTINAL STRUCTURES: Mediastinal adenopathy is identified at the level of the aortopulmo nary window. There are other prominent mediastinal and bilateral hilar lymph nodes. HARDWARE: None in the chest. Orthopedic hardware is identified in the lower thoracic spine. UPPER ABDOMEN: There is an ill-defined relative low density area in the right and left lobes of the l iver of uncertain etiology or significance. THYROID AND OTHER SOFT TISSUES: No masses. No adenopathy. BONES: No acute or significant finding. 3D MIPS: Confirm above findings. OTHER: No other significant finding. IMPRESSION: No evidence for pulmonary embolic disease. No acute consolidations or pleural effusions . Mediastinal adenopathy is noted above. Ill-defined relative low density areas in the right and le ft lobes of the liver as noted above of uncertain etiology or significance. Clinical correlation is recommended. A dedicated abdominal CT scan may be of value for further evaluation. Other findings a s noted above COMMENT: Quality ID # 436: Final reports with documentation of one or more dose reduction techniques (e.g., Automated exposure control, adjustment of the mA and/or kV according to patient size, use of iterative reconstruction technique) TECHNICAL DOCUMENTATION: JOB ID: [id number] [employer]- All Rights Reserved Reading location - IP/workstation name: [email or web address]
[2018-05-17 17:06] LABS: FREE T3 5.12 pg/mL (2.77-5.27); FREE T4 (FREE THYROXINE) 1.43 ng/dL (0.78-2.19)
[2018-05-17 17:20] LABS: THYROID STIMULATING HORMONE 3.48 uIU/mL (0.47-4.68)
[2018-05-17 18:39] LABS: APPEARANCE,URINE CLEAR; BILIRUBIN,URINE NEGATIVE (NEGATIVE); COLOR,URINE YELLOW; GLUCOSE, URINE NEGATIVE (NEGATIVE); KETONES,URINE NEGATIVE (NEGATIVE); LEUKOCYTE ESTERASE,URINE NEGATIVE (NEGATIVE); NITRITE,URINE NEGATIVE (NEGATIVE); PROTEIN,URINE NEGATIVE (NEGATIVE); URINE SPECIFIC GRAVITY 1.031; UROBILINOGEN,URINE NEGATIVE mg/dL (<2.0)
[2018-05-17 19:03] LABS: URINE AMPHETAMINES SCREEN NEGATIVE; URINE BARBITURATES SCREEN NEGATIVE; URINE BENZODIAZEPINES SCREEN NEGATIVE; URINE COCAINE SCREEN NEGATIVE; URINE MARIJUANA (THC) SCREEN NEGATIVE; URINE METHADONE SCREEN NEGATIVE; URINE PHENCYCLIDINE SCREEN NEGATIVE
[2018-05-17 19:15] VITALS: BP 137/86
--- NOTE | 2018-05-18 09:02 | EKG REPORT ---
SEVERITY:- ABNORMAL ECG - SINUS TACHYCARDIA ABNRM R PROG, CONSIDER ASMI OR LEAD PLACEMENT : Confirmed by: April Burger 18-May-2018 09:01:57
== END 2018-05-17 19:12 | disposition home or self-care (01) ==
LOC: ER 13:36
DX: J20.9 Acute bronchitis, unspecified (principal); I47.1 Supraventricular tachycardia; R39.89 Other symptoms and signs involving the genitourinary system; R05 Cough; R68.83 Chills (without fever); R07.89 Other chest pain; R06.02 Shortness of breath; R11.0 Nausea; K76.9 Liver disease, unspecified; F41.9 Anxiety disorder, unspecified; M54.9 Dorsalgia, unspecified; G89.29 Other chronic pain; Z88.2 Allergy status to sulfonamides; Z88.8 Allergy status to other drugs, medicaments and biological substances; Z87.891 Personal history of nicotine dependence
CPT/HCPCS: 93005; 99284; 96360; 96361; 51701; 36415; 84439; 82553; 82550; 83690; 83735; 84443; 85025; 82272; 80053; 81001; 84484; 80307; 84481; 83880; 71045; 71275; 93010; J7030

== ENCOUNTER → 2018-06-04 | Outpatient (CLI) | payer MEDICARE ==
--- NOTE | 2018-06-04 11:56 | RADIOLOGY REPORT (SQ) ---
EXAM DESCRIPTION: NM WHOLE BODY BONE SCAN COMPLETED DATE/TIME: 06/04/2018 11:26 am REASON FOR STUDY: DISORDER OF BONE, UNSPEC (M89.9), SPINAL STENOSIS, CERVICAL REGION (M48.02) M89.9 DISORDER OF BONE, UNSPECIFIED M48.02 SPINAL STENOSIS, CERVICAL REGION COMPARISON: CT chest 05/17/2018 MRI lumbar spine 02/25/2018 RADIONUCLIDE AND DOSE: 22 millicuries Tc99m MDP. The route of agent administration: Intravenous. ADDITIONAL DRUGS AND DOSES: None. TECHNIQUE: Routine delayed images at 3 hours post radionuclide injection acquired of the bony skelet on including anterior and posterior whole-body projections and additional focused images as needed. LIMITATIONS: None. FINDINGS: BONES: There is bandlike increased activity in the lower thoracic spine at the T10-11 and T11-12 levels. This correlates with vacuum disc phenomenon and vertebral body endplate sclerosis on CT exam 05/17/2018 from degenerative disc changes. Mild increased uptake at the glenohumeral joints, bilateral knees, bilateral mid feet, right 1st MTP joint in characteristic locations of osteoarthritis. There are bare areas over the right and left hips from bilateral hip replacements. KIDNEYS: Symmetric excretion without obstruction. OTHER: No other significant finding. IMPRESSION: Increased activity over the lower thoracic spine correlates with advanced degenerative d isc changes on CT exam 05/17/2018. COMMENT: Quality measure 147: Current bone scan is compared with any available plain radiographs, p rior bone scans, and CT/MRI. TECHNICAL DOCUMENTATION: JOB ID: [id number] [employer]- All Rights Reserved Reading location - IP/workstation name: [email or web address]
== END ==
LOC: RAD 07:13
PROVIDERS: ATTEND Family Medicine
DX: M48.02 Spinal stenosis, cervical region (principal)
CPT/HCPCS: 78306; A9561; Q9969

== ENCOUNTER 2018-08-31 23:04 | Emergency (ER) | payer OTHER ==
--- NOTE | 2018-09-01 00:43 | ER Document Report ---
ED General - General Chief Complaint: Post Surgical Pain Stated Complaint: NERVE ISSUES Time Seen by Provider: 08/31/18 23:51 Notes: Patient is a 57-year-old female who had a nerve stimulator placed into the left low back 2 days ago presents with concerns of possible infection to the wire entry site. The patient has noted saturation of the overlying dressing with a brownish, yellowish fluid. She contacted the on-call nurse at [facility] and was encouraged to come to the emergency department for assessment. She denies any pain to the area. She denies fever or constitutional symptoms. No spreading redness to the area. She has not yet followed up with the surgeon who placed the wires. Nothing improves or worsens her symptoms. TRAVEL OUTSIDE OF THE [place] IN LAST 30 DAYS: No - Related Data Allergies/Adverse Reactions: diclofenac [Diclofenac] Allergy (Intermediate, Verified 05/17/18 13:38) Hives Sulfa (Sulfonamide Antibiotics) Allergy (Intermediate, Verified 05/17/18 13:38) elevated WBC count, elevated B/P Past Medical History - General Information source: Patient - Social History Smoking Status: Never Smoker Frequency of alcohol use: None Drug Abuse: None Lives with: Family Family History: Reviewed & Not Pertinent Patient has suicidal ideation: No Patient has homicidal ideation: No - Past Medical History Cardiac Medical History: Denies: Hx Coronary Artery Disease, Hx Heart Attack, Hx Hypercholesterolemia , Hx Hypertension Pulmonary Medical History: Denies: Hx Asthma, Hx Bronchitis, Hx COPD, Hx Pneumonia Neurological Medical History: Denies: Hx Cerebrovascular Accident, Hx Seizures Endocrine Medical History: Reports: Hx Hypothyroidism. Denies: Hx Graves' Disease, Hx Hyperthyroidism Renal/ Medical History: Denies: Hx Kidney Stones, Hx Peritoneal Dialysis GI Medical History: Denies: Hx Crohn's Disease, Hx Gastroesophageal Reflux Disease, Hx Hiatal Hernia, Hx Irritable Bowel, Hx Liver Failure, Hx Pancreatitis , Hx Ulcer Musculoskeletal Medical History: Denies Hx Arthritis, Reports Hx Fibromyalgia, Denies Hx Muscular Dystrophy Psychiatric Medical History: Reports: Hx Depression Traumatic Medical History: Denies: Hx Fractures Past Surgical History: Reports: Hx Section - X3, Hx Cholecystectomy, Hx Hysterectomy, Hx Orthopedic Surgery - left total hip replacement, spinal fusions, Hx Tonsillectomy. Denies: Hx Appendectomy, Hx Bowel Surgery, Hx Colostomy, Hx Coronary Artery Bypass Graft, Hx Gastric Bypass Surgery, Hx Herniorrhaphy, Hx Pacemaker, Hx Tubal Ligation - Immunizations Hx Diphtheria, Pertussis, Tetanus Vaccination: Yes - <5years Review of Systems - Review of Systems Notes: Constitutional: Negative for fever. HENT: Negative for sore throat. Eyes: Negative for visual changes. Cardiovascular: Negative for chest pain. Respiratory: Negative for shortness of breath. Gastrointestinal: Negative for abdominal pain, vomiting or diarrhea. Genitourinary: Negative for dysuria. Musculoskeletal: Negative for back pain. Skin: Positive for drainage from surgical site Neurological: Negative for headaches, weakness or numbness. 10 point ROS negative except as marked above and in HPI. Physical Exam - Vital signs Vitals: Temp Pulse Resp BP Pulse Ox 98.3 F 94 16 148/82 H 96 08/31/18 23:20 08/31/18 23:20 08/31/18 23:20 08/31/18 23:20 08/31/18 23:20 Interpretation: Normal Notes: PHYSICAL EXAMINATION: GENERAL: Well-appearing, well-nourished and in no acute distress. HEAD: Atraumatic, normocephalic. EYES: sclera anicteric, conjunctiva are normal. ENT: Moist mucous membranes. NECK: Normal range of motion LUNGS: Normal work of breathing HEART: 2+ radial pulses bilaterally EXTREMITIES: no pitting or edema. No cyanosis. NEUROLOGICAL: No focal neurological deficits. Moves all extremities spontaneously and on command. PSYCH: Normal mood, normal affect. SKIN: Warm, Dry, normal turgor, there are 2 puncture entry wound sites where the wires enter in the left low back that appear well healing without any surrounding fluctuance, swelling or erythema. Course - Re-evaluation Re-evalutation: 09/01/18 00:43 Patient presents with concerns of a possible wound infection to a nerve stimulator implanted in her left low back. Dressing was removed and there is no evidence of infection. It appears that this was likely mostly serous drainage. No evidence of abscess pocket or surrounding cellulitis. No indication for labs or imaging. At this time will discharge with return precautions and follow-up recommendations. Verbal discharge instructions given a the bedside and opportunity for questions given. Medication warnings reviewed. Patient is in agreement with this plan and has verbalized understanding of return precautions and the need for primary care follow-up in the next 24-72 hours. - Vital Signs Vital signs: Temp Pulse Resp BP Pulse Ox 97.6 F 84 16 123/66 95 09/01/18 01:10 09/01/18 01:10 08/31/18 23:20 09/01/18 01:10 09/01/18 01:10 Discharge - Discharge Clinical Impression: Wound drainage Condition: Good Disposition: HOME, SELF-CARE Additional Instructions: The site does not appear infected. Please follow-up with your surgeon as directed. Return for increasing drainage, fever, increase pain to the area, spreading redness from the site or any other symptoms that are worrisome to you. Referrals: JEFE WOOD DO [Primary Care Provider] - Follow up as needed
[2018-09-01 01:18] VITALS: BP 123/66
== END 2018-09-01 01:18 | disposition home or self-care (01) ==
LOC: ER 23:04
DX: T81.89XA Other complications of procedures, not elsewhere classified, initial encounter (principal); G89.18 Other acute postprocedural pain; X58.XXXA Exposure to other specified factors, initial encounter; Z98.890 Other specified postprocedural states
CPT/HCPCS: 99283

== ENCOUNTER 2018-09-21 19:32 | Emergency (ER) | payer OTHER ==
[2018-09-21] MEDS ORDERED: OXYCODONE-ACETAMINOPHEN 5-325 MG TABLET PO ONE (21:00)
--- NOTE | 2018-09-21 21:04 | ER Document Report ---
ED General - General Chief Complaint: Leg Swelling Stated Complaint: FOOT/LEG PAIN Time Seen by Provider: 09/21/18 20:49 Notes: Patient is a 57-year-old female that comes to the emergency department for chief complaint of bilateral lower extremity swelling which has progressively worsened over the past week. She denies of diagnosed history of congestive heart failure, states she has had intermittent mild shortness of breath, denies chest pain. She denies blood clot history, she states she has had mild lower extremity swelling in the past but this is worse than previously. She states that she has spent the majority of the past week in the hospital visiting her and thinks this might be contributing. She did have a neurostimulator placed at [facility] several weeks ago. Past medical history of arthritis, chronic back pain, fibromyalgia, hypothyroidism. She denies smoking. TRAVEL OUTSIDE OF THE [place] IN LAST 30 DAYS: No - Related Data Allergies/Adverse Reactions: diclofenac [Diclofenac] Allergy (Intermediate, Verified 09/21/18 19:41) Hives Sulfa (Sulfonamide Antibiotics) Allergy (Intermediate, Verified 09/21/18 19:41) elevated WBC count, elevated B/P Past Medical History - General Information source: Patient - Social History Smoking Status: Former Smoker Frequency of alcohol use: None Drug Abuse: None Lives with: Family Family History: Reviewed & Not Pertinent - Past Medical History Cardiac Medical History: Denies: Hx Coronary Artery Disease, Hx Heart Attack, Hx Hypercholesterolemia Pulmonary Medical History: Denies: Hx Asthma, Hx Bronchitis, Hx COPD, Hx Pneumonia Neurological Medical History: Denies: Hx Cerebrovascular Accident, Hx Seizures Endocrine Medical History: Reports: Hx Hypothyroidism. Denies: Hx Graves' Dis ease, Hx Hyperthyroidism Renal/ Medical History: Denies: Hx Kidney Stones, Hx Peritoneal Dialysis GI Medical History: Denies: Hx Crohn's Disease, Hx Gastroesophageal Reflux Disease, Hx Hiatal Hernia, Hx Irritable Bowel, Hx Liver Failure, Hx Pancrea titis, Hx Ulcer Musculoskeletal Medical History: Denies Hx Arthritis, Reports Hx Fibromyalgia, Denies Hx Muscular Dystrophy Psychiatric Medical History: Reports: Hx Depression Traumatic Medical History: Denies: Hx Fractures Past Surgical History: Reports: Hx Section - X3, Hx Cholecystectomy, Hx Hysterectomy, Hx Orthopedic Surgery - left total hip replacement, spinal fusions, Hx Tonsillectomy. Denies: Hx Appendectomy, Hx Bowel Surgery, Hx Colostomy, Hx Coronary Artery Bypass Graft, Hx Gastric Bypass Surgery, Hx Herniorrhaphy, Hx Pacemaker, Hx Tubal Ligation - Immunizations Hx Diphtheria, Pertussis, Tetanus Vaccination: Yes - <5years Review of Systems - Review of Systems Constitutional: No symptoms reported EENT: No symptoms reported Cardiovascular: See HPI Respiratory: See HPI Gastrointestinal: No symptoms reported Genitourinary: No symptoms reported Female Genitourinary: No symptoms reported Musculoskeletal: See HPI Skin: No symptoms reported Hematologic/Lymphatic: No symptoms reported Neurological/Psychological: No symptoms reported Physical Exam - Vital signs Vitals: Temp Pulse Resp BP Pulse Ox 98.9 F 94 18 158/82 H 97 09/21/18 20:02 09/21/18 20:02 09/21/18 20:02 09/21/18 20:02 09/21/18 20:02 - Notes Notes: GENERAL: Alert, interacts well. No acute distress. HEAD: Normocephalic, atraumatic. EYES: Pupils equal, round, and reactive to light. Extraocular movements intact. ENT: Oral mucosa moist, tongue midline. Oropharynx unremarkable. Airway patent. Nares patent, no nasal septal hematoma, TM's intact. NECK: Full range of motion. Supple. Trachea midline. LUNGS: Clear to auscultation bilaterally, no wheezes, rales, or rhonchi. No respiratory distress. HEART: Regular rate and rhythm. No murmur ABDOMEN: Soft, non-tender. Non-distended. Bowel sounds present in all 4 quadrants. GENITOURINARY: Deferred EXTREMITIES: Moves all 4 extremities spontaneously. 1+ slightly pitting edema bilaterally, normal radial and dorsalis pedis pulses bilaterally. No cyanosis. BACK: no cervical, thoracic, lumbar midline tenderness. No saddle anesthesia, normal distal neurovascular exam. NEUROLOGICAL: Alert and oriented x3. Normal speech. [cranial nerves II through XII grossly intact]. PSYCH: Normal affect, normal mood. SKIN: Warm, dry, normal turgor. No rashes or lesions noted. Course - Re-evaluation Re-evalutation: EKG sinus rhythm, normal axis, no ST segment changes or T wave inversions in consecutive leads. Chest x-ray does not show cardiomegaly or failure. BNP is normal. Troponin is normal. CBC and chemistry unremarkable. Albumin is normal. Patient specifically asked what her blood sugar was, asked that this be written on her instructions. On further questioning patient states that she actually has not had shortness of breath for a few days and only had a mildly before that. I have a low suspicion of PE. She also states that she slowly had worsening symptoms and has been sitting in a hospital chair with her feet down for the past week. I do not suspect IVC clot causing bilateral lower extremity swelling based on her history and examination. Appears to be venous insufficiency. Provided with CALVIN stockings, discussed use of diuretics but then this was declined. Discussed follow-up, expectations, return precautions. Patient and family member state understanding and agreement. - Vital Signs Vital signs: Temp Pulse Resp BP Pulse Ox 97.9 F 80 18 123/72 95 09/21/18 23:51 09/21/18 23:51 09/21/18 23:51 09/21/18 23:51 09/21/18 23:51 - Laboratory Result Diagrams: 09/21/18 22:24 09/21/18 22:24 Laboratory results interpreted by me: 09/21/18 22:24 RDW 14.4 H Discharge - Discharge Clinical Impression: Swelling of both lower extremities Condition: Stable Disposition: HOME, SELF-CARE Additional Instructions: Your workup is reassuring. Your evaluation is consistent with venous insufficiency causing lower extremity swelling. Recommendation is to elevate and wear compression stockings. This should make the swelling resolved. If this continues to occur follow-up with primary care for additional management. Your blood glucose today was 104. Return for any concerning symptoms including severe swelling, developing redness, fever, shortness of breath, or any other concerning or worsening symptoms. Referrals: JEFE WOOD DO [Primary Care Provider] - Follow up as needed
--- NOTE | 2018-09-21 22:06 | RADIOLOGY REPORT (SQ) ---
EXAM DESCRIPTION: XR CHEST 2 VIEWS COMPLETED DATE/TME: 09/21/2018 20:58 CLINICAL HISTORY: 57 years, Female, shortness of breath, bilateral LE swelling COMPARISON: 05/17/2018 chest x-ray NUMBER OF VIEWS: 2 TECHNIQUE: Frontal and lateral views of the chest LIMITATIONS: None. FINDINGS: The heart size is normal. Stimulating wires project over the mid thoracic spine. Post surgical changes of the lower thoracic and lumbar spines. Osteopenia. Lungs are clear. No pneumothorax. IMPRESSION: No acute cardiopulmonary process copyright 2010 [employer] All Rights Reserved
[2018-09-21 22:36] LABS: ABSOLUTE EOSINOPHILS # (AUTO) 0.3 10^3/uL (0.0-0.6); ABSOLUTE LYMPHOCYTES (AUTO) 1.6 10^3/uL (0.5-4.7); ABSOLUTE MONOCYTES (AUTO) 0.7 10^3/uL (0.1-1.4); ABSOLUTE NEUT (AUTO) 3.9 10^3/uL (1.7-8.2); BASOPHILS % (AUTO) 0.5 % (0-2); EOSINOPHILS % (AUTO) 4.2 % (0-6); HEMATOCRIT 39.2 % (36.0-47.0); HEMOGLOBIN 13.4 g/dL (12.0-15.5); LYMPHOCYTES % (AUTO) 25.4 % (13-45); MEAN CORPUSCULAR HEMOGLOBIN 28.5 pg (27.0-33.4); MEAN CORPUSCULAR HGB CONC 34.3 g/dL (32.0-36.0); MEAN CORPUSCULAR VOLUME 83 fl (80-97); MONOCYTES % (AUTO) 10.1 % (3-13); PLATELET COUNT 206 10^3/uL (150-450); RED BLOOD COUNT 4.72 10^6/uL (3.72-5.28); RED CELL DISTRIBUTION WIDTH 14.4 % (11.5-14.0); SEGMENTED NEUTROPHILS % (AUTO) 59.8 % (42-78); TOTAL CELLS COUNTED % (AUTO) 100 %; WHITE BLOOD COUNT 6.5 10^3/uL (4.0-10.5)
[2018-09-21 22:56] LABS: ALANINE AMINOTRANSFERASE 33 U/L (9-52); ALBUMIN 3.7 g/dL (3.5-5.0); ALKALINE PHOSPHATASE 124 U/L (38-126); ANION GAP 6 (5-19); ASPARTATE AMINO TRANSFERASE 36 U/L (14-36); BILIRUBIN,DIRECT 0.2 mg/dL (0.0-0.4); BILIRUBIN,TOTAL 0.4 mg/dL (0.2-1.3); BLOOD UREA NITROGEN 9 mg/dL (7-20); CALCIUM 9.1 mg/dL (8.4-10.2); CARBON DIOXIDE 27 mmol/L (22-30); CHLORIDE 106 mmol/L (98-107); GLUCOSE 104 mg/dL (75-110); SODIUM 138.8 mmol/L (137-145); TOTAL PROTEIN 6.5 g/dL (6.3-8.2)
[2018-09-21 23:06] LABS: NT PRO BNP 73 pg/mL (5-900)
[2018-09-21 23:10] LABS: TROPONIN I < 0.012 ng/mL
[2018-09-21] MEDS ORDERED: HYDROCODONE/ACETAMINOPHEN 5-325 MG (6 TAB/ER DISP) PO PRN (23:31)
[2018-09-22 00:03] VITALS: BP 123/72
--- NOTE | 2018-09-22 12:55 | EKG REPORT ---
SEVERITY:- BORDERLINE ECG - SINUS RHYTHM PROBABLE LEFT ATRIAL ABNORMALITY : Confirmed by: April Burger 22-Sep-2018 12:54:42
== END 2018-09-22 00:04 | disposition home or self-care (01) ==
LOC: ER 19:32
DX: M79.89 Other specified soft tissue disorders (principal); R06.02 Shortness of breath; I50.9 Heart failure, unspecified; E03.9 Hypothyroidism, unspecified; Z90.49 Acquired absence of other specified parts of digestive tract; Z90.710 Acquired absence of both cervix and uterus; Z88.2 Allergy status to sulfonamides; Z96.642 Presence of left artificial hip joint; Z98.1 Arthrodesis status
CPT/HCPCS: 36415; 71046; 80053; 83880; 84484; 85025; 93005; 93010; 99284

== ENCOUNTER 2019-04-02 22:38 | Emergency (ER) | payer OTHER, MEDICARE ==
[2019-04-03] MEDS ORDERED: TETRACAINE HCL 0.5% OPH SOLN 4 ML OS ONE (00:38)
[2019-04-03] MEDS ORDERED: CIPROFLOXACIN HCL 0.3% OPH SOLN 2.5 ML OS ONE ×3 (00:57→01:01)
--- NOTE | 2019-04-03 01:13 | ER Document Report ---
Entered by JAVON MADRID SCRIBE 04/02/19 [id number] Acting as scribe for:JESSICA SAXENA MD ED Eye Complaint - General Chief Complaint: Eye Pain Stated Complaint: EYE PAIN Time Seen by Provider: 04/02/19 23:17 Primary Care Provider: RANDY WORKMAN MD [Primary Care Provider] - Follow up as needed Notes: Patient is a 58-year-old female presenting to the emergency department complaining of eye pain. Patient had cataract surgery at the [facility] [place] on March 25 of her left eye. Patient had cataract surgery of her right also at the [facility] in [place] on March 26. Patient states that earlier today she was sitting down watching TV, she dropped the remote and bent down to pick it up, when she stood up she felt throbbing bilaterally. Patient states that she has severe photosensitivity. Patient states [facility] [place] TRAVEL OUTSIDE OF THE [place] IN LAST 30 DAYS: No - Related Data Allergies/Adverse Reactions: diclofenac [Diclofenac] Allergy (Intermediate, Verified 04/02/19 22:50) Hives Sulfa (Sulfonamide Antibiotics) Allergy (Intermediate, Verified 04/02/19 22:50) elevated WBC count, elevated B/P Past Medical History - General Information source: Patient - Social History Smoking Status: Never Smoker Cigarette use (# per day): No Chew tobacco use (# tins/day): No Frequency of alcohol use: None Drug Abuse: None Family History: Reviewed & Not Pertinent Endocrine Medical History: Reports: Hx Hypothyroidism Musculoskeletal Medical History: Reports Hx Fibromyalgia Psychiatric Medical History: Reports: Hx Depression Past Surgical History: Reports: Hx Section - X3, Hx Cholecystectomy, Hx Hysterectomy, Hx Orthopedic Surgery - left total hip replacement, spinal fusions, Hx Tonsillectomy - Immunizations Hx Diphtheria, Pertussis, Tetanus Vaccination: Yes - <5years Review of Systems - Review of Systems Constitutional: No symptoms reported EENT: See HPI, Eye pain Cardiovascular: No symptoms reported Respiratory: No symptoms reported Gastrointestinal: No symptoms reported Genitourinary: No symptoms reported Female Genitourinary: No symptoms reported Musculoskeletal: No symptoms reported Skin: No symptoms reported Hematologic/Lymphatic: No symptoms reported Neurological/Psychological: No symptoms reported -: Yes All other systems reviewed and negative Physical Exam - Vital signs Vitals: Temp Pulse Resp BP Pulse Ox 97.9 F 99 18 150/88 H 97 04/02/19 22:54 04/02/19 22:54 04/02/19 22:54 04/02/19 22:54 04/02/19 22:54 - Notes Notes: Physical Exam: General: Alert, appears well, photosensitivity. HEENT: Normocephalic. Atraumatic. PERRL. Blurry vision. Left eye tenderness to palpation. Left eye hurts more than the right. Opening the right eye hurts the left more. Extraocular movements with eyes open are tender. Looking left when eyes are open causes pain. Looking left when eyes are closed does not hurt. Oropharynx clear. Neck: Supple. Non-tender. Respiratory: No respiratory distress. Clear and equal breath sounds bilaterally. Cardiovascular: Regular rate and rhythm. Abdominal: Normal Inspection. Non-tender. No distension. Normal Bowel Sounds. Back: Non-tender. No deformity or step off. Extremities: Moves all four extremities. Upper extremities: Normal inspection. Normal ROM. Lower extremities: Normal inspection. No edema. Normal ROM. Neurological: Normal cognition. AAOx4. Normal speech. Psychological: Normal affect. Normal Mood. Skin: Warm. Dry. Normal color. Course - Re-evaluation Re-evalutation: 04/03/19 00:57 PROCEDURE: Left eye was anesthetized with 1 tetracaine drop. Ocular pressure was tested and found to be 14. The palpation of the globe through the eyelid after the tetracaine showed the patient to have no pain at that point. Fluorescein stain was applied to the left eye. Wood's lamp shows some hazy uptake in the inferior quarter of the cornea suggesting abrasion. The fluorescein was irrigated out of the eye with saline. - Vital Signs Vital signs: Temp Pulse Resp BP Pulse Ox 97.9 F 99 18 150/88 H 97 04/02/19 22:54 04/02/19 22:54 04/02/19 22:54 04/02/19 22:54 04/02/19 22:54 - Consults Dr. Sofia Time consulted: 00:30 Consulted provider: follow-up in office - Requests check ocular pressure and look for corneal abrasions. Discharge - Discharge Clinical Impression: Left corneal abrasion Qualifiers: Encounter type: initial encounter Qualified Code(s): S05.02XA - Injury of conjunctiva and corneal abrasion without foreign body, left eye, initial encounter Condition: Stable Disposition: HOME, SELF-CARE Additional Instructions: Corneal Abrasion You appear to have a corneal abrasion, a scratch on the surface of the eye. The pain of a corneal abrasion feels like a sharp particle in the eye. Usually, antibiotics are placed in the eye to prevent infection. Occasionally, medication will be placed in the eye to dilate the pupil. This is done to relieve some of your discomfort and is only temporary. Pain medication may be required. Don't drive or operate machinery until you have the use of both your eyes. The abrasion usually is healed in one or two days. A follow-up examination to confirm healing is recommended. Call the doctor or return at once if you develop severe pain, decreasing vision, eye swelling, or purulent drainage. Continue using your prednisolone and ketorolac eyedrops. Put the Cipro eyedrops in the eye: 1 drop every 4 hours. Follow-up with Dr. Sofia at [facility] in the morning. Try to get there by 8:30 AM. Tell them that you have a 1:30 PM appointment at the [facility], and see if they can see you earlier than the 9:00 AM time he requested. Referrals: RANDY WORKMAN MD [Primary Care Provider] - Follow up as needed ELVIS SOFIA MD [ACTIVE STAFF] - 04/03/19 8:30 am Scribe Attestation: 04/03/19 01:07 I personally performed the services described in the documentation, reviewed and edited the documentation which was dictated to the scribe in my presence, and it accurately records my words and actions. I personally performed the services described in the documentation, reviewed and edited the documentation which was dictated to the scribe in my presence, and it accurately records my words and actions.
[2019-04-03 01:25] VITALS: BP 142/78
== END 2019-04-03 01:25 | disposition home or self-care (01) ==
LOC: ER 22:38
DX: S05.02XA Injury of conjunctiva and corneal abrasion without foreign body, left eye, initial encounter (principal); H57.12 Ocular pain, left eye; X58.XXXA Exposure to other specified factors, initial encounter
CPT/HCPCS: 99283; J3490 ×2

== ENCOUNTER 2019-04-10 18:26 | Emergency (ER) | payer MEDICARE, OTHER ==
--- NOTE | 2019-04-10 18:51 | RADIOLOGY REPORT (SQ) ---
EXAM DESCRIPTION: CHEST SINGLE VIEW COMPLETED DATE/TIME: 04/10/2019 6:41 pm REASON FOR STUDY: bed 12 cp COMPARISON: 09/21/2018 TECHNIQUE: Single frontal radiographic view of the chest acquired. NUMBER OF VIEWS: One view. LIMITATIONS: None. FINDINGS: LUNGS AND PLEURA: No pneumothorax. 2 cm area of focal opacity in the right lung base. Ot herwise no consolidation or significant pleural effusion. MEDIASTINUM AND HILAR STRUCTURES: Stable. HEART AND VASCULAR STRUCTURES: Stable. BONES: No acute findings. HARDWARE: The thoracic nerve stimulator. OTHER: No other significant finding. IMPRESSION: 2 cm area of focal opacity in the right lung base. Otherwise no consolidation or signif icant pleural effusion. TECHNICAL DOCUMENTATION: JOB ID: [id number] [place]-72 2010 [employer]- All Rights Reserved Reading location - IP/workstation name: [email or web address]
[2019-04-10 18:53] LABS: ABSOLUTE EOSINOPHILS # (AUTO) 0.2 10^3/uL (0.0-0.6); ABSOLUTE LYMPHOCYTES (AUTO) 3.6 10^3/uL (0.5-4.7); ABSOLUTE MONOCYTES (AUTO) 1.4 10^3/uL (0.1-1.4); BASOPHILS % (AUTO) 0.2 % (0-2); EOSINOPHILS % (AUTO) 1.2 % (0-6); HEMATOCRIT 45.5 % (36.0-47.0); HEMOGLOBIN 15.5 g/dL (12.0-15.5); LYMPHOCYTES % (AUTO) 20.9 % (13-45); MEAN CORPUSCULAR HEMOGLOBIN 28.6 pg (27.0-33.4); MEAN CORPUSCULAR HGB CONC 34.1 g/dL (32.0-36.0); MEAN CORPUSCULAR VOLUME 84 fl (80-97); MONOCYTES % (AUTO) 7.9 % (3-13); PLATELET COUNT 256 10^3/uL (150-450); RED BLOOD COUNT 5.44 10^6/uL (3.72-5.28); RED CELL DISTRIBUTION WIDTH 15.7 % (11.5-14.0); SEGMENTED NEUTROPHILS % (AUTO) 69.8 % (42-78); TOTAL CELLS COUNTED % (AUTO) 100 %; WHITE BLOOD COUNT 17.3 10^3/uL (4.0-10.5)
--- NOTE | 2019-04-10 19:08 | ER Document Report ---
ED General - General Chief Complaint: Chest Pain Stated Complaint: CHEST PAIN Time Seen by Provider: 04/10/19 19:00 Primary Care Provider: JEFE WOOD DO [Primary Care Provider] - Follow up in 3-5 days Notes: Patient is a 58-year-old female that presents to the emergency department for chief complaint of right pleuritic chest pain. Patient states that her pain started around 5:00 today, worse with a deep breath, describes it as a sharp stabbing type pain. She does have chronic pain, but this seems to be worse and new. She recently had a biopsy on Monday of both her lungs, due to nodules and concern for possible neoplasm. She states that they thought at one point she had sarcoidosis, but the diagnosis is not clear at this time. She currently rates her pain as a 6 out of 10, described again as sharp and worse with a deep breath, denies any recent fevers, chills, night sweats, nausea, vomiting, abdom inal pain, dysuria hematuria. No other complaint at this time. Past Medical History: Hypothyroidism Past Surgical History: Lung biopsies Social History: Admits to smoking cigarettes, daily alcohol use, denies illicit drug use. Family History: Reviewed and noncontributory for presenting illness Allergies: Reviewed, see documented allergy list. REVIEW OF SYSTEMS: Other than noted above, the 12 point review of systems was reviewed with the patient and were negative, all pertinent findings are included in the HPI. PHYSICAL EXAMINATION: Vital signs reviewed, nursing noted reviewed. GENERAL: Patient appears rather anxious, and uncomfortable HEAD: Atraumatic, normocephalic. EYES: Eyes appear normal, extraocular movements intact, sclera anicteric, conjunctiva are normal. ENT: nares patent, oropharynx clear without exudates. Moist mucous membranes. NECK: Normal range of motion, supple without lymphadenopathy LUNGS: Breath sounds clear to auscultation bilaterally and equal. No wheezes rales or rhonchi. HEART: Heart rate tachycardic, regular rhythm, no audible murmur ABDOMEN: Soft, nontender, normoactive bowel sounds. No rebound, guarding, or rigidity. No masses appreciated. EXTREMITIES: Nontender, good range of motion, no pitting or edema. NEUROLOGICAL: No focal neurological deficits. Moves all extremities spontaneously Motor and sensory grossly intact on exam. PSYCH: Appears anxious on exam SKIN: Warm, Dry, normal turgor, no rashes or lesions noted on exposed skin TRAVEL OUTSIDE OF THE [place] IN LAST 30 DAYS: No - Related Data Allergies/Adverse Reactions: diclofenac [Diclofenac] Allergy (Intermediate, Verified 04/02/19 22:50) Hives Sulfa (Sulfonamide Antibiotics) Allergy (Intermediate, Verified 04/02/19 22:50) elevated WBC count, elevated B/P Past Medical History - Social History Smoking Status: Current Every Day Smoker Family History: Reviewed & Not Pertinent - Past Medical History Cardiac Medical History: Denies: Hx Coronary Artery Disease, Hx Heart Attack, Hx Hypercholesterolemia, Hx Hypertension Pulmonary Medical History: Denies: Hx Asthma, Hx Bronchitis, Hx COPD, Hx Pneumonia Neurological Medical History: Denies: Hx Cerebrovascular Accident, Hx Seizures Endocrine Medical History: Reports: Hx Hypothyroidism. Denies: Hx Graves' Disease, Hx Hyperthyroidism Renal/ Medical History: Denies: Hx Kidney Stones, Hx Peritoneal Dialysis GI Medical History: Denies: Hx Crohn's Disease, Hx Gastroesophageal Reflux Disea se, Hx Hiatal Hernia, Hx Irritable Bowel, Hx Liver Failure, Hx Pancreatitis, Hx Ulcer Musculoskeletal Medical History: Denies Hx Arthritis, Reports Hx Fibromyalgia, Denies Hx Muscular Dystrophy, Denies Hx Systemic Lupus Erythematosus Psychiatric Medical History: Reports: Hx Depression Traumatic Medical History: Denies: Hx Fractures Past Surgical History: Reports: Hx Section - X3, Hx Cholecystectomy, Hx Hysterectomy, Hx Orthopedic Surgery - left total hip replacement, spinal fusions, Hx Tonsillectomy. Denies: Hx Appendectomy, Hx Bowel Surgery, Hx Colostomy, Hx Coronary Artery Bypass Graft, Hx Gastric Bypass Surgery, Hx Herniorrhaphy, Hx Pacemaker, Hx Tubal Ligation - Immunizations Hx Diphtheria, Pertussis, Tetanus Vaccination: Yes - <5years Physical Exam - Vital signs Vitals: Pulse Ox 95 04/10/19 18:27 Course - Re-evaluation Re-evalutation: Patient seen and examined vital signs reviewed. Laboratory data and/or imaging were ordered as appropriate for the patient's presenting symptoms and complaint, with consideration of any critical or life threatening conditions that may be associated with their obtained history and exam as noted above. Patient was treated with IV fluids, Zofran and Ativan Results were reviewed when available and demonstrated chest x-ray demonstrated pulmonary nodule versus mass, this is under the patient, she did have recent biopsy, and on CTA, was negative for PE, but did demonstrate possible right middle lobe pneumonia, which is likely causing the patient's pleuritic pain, as it is peripheral, will start the patient on Rocephin and azithromycin, given 1 dose IV The patient was re-evaluated and was improving, patient's heart rate improved, she does drink daily, I think part of her tachycardia is from potential withdrawal she was rather anxious, versus her underlying anxiety itself. She was noted to have a leukocytosis, and again possible pneumonia on CT imaging, therefore we will start her on antibiotics, I do feel that she can be discharged home, she is on hypotensive, she is feeling better, not hypoxic, [facility] Evaluation was most consistent with pneumonia, pleuritic chest pain Results were discussed with the patient at this point, after careful consideration I feel that that patient can be discharged from the emergency department, the patient was educated treatments and reasons to return to the emergency department based on their presumed diagnosis as noted above, they were advised to followup with a primary care physician in 2-3 days. Patient was agreeable to plan of care. *Note is created using voice recognition software and may contain spelling, syntax or grammatical errors. Laboratory 04/10/19 04/10/19 04/10/19 18:04 18:04 18:04 WBC 17.3 H RBC 5.44 H Hgb 15.5 Hct 45.5 MCV 84 MCH 28.6 MCHC 34.1 RDW 15.7 H Plt Count 256 Seg Neutrophils % 69.8 Lymphocytes % 20.9 Monocytes % 7.9 Eosinophils % 1.2 Basophils % 0.2 Absolute Neutrophils 12.0 H Absolute Lymphocytes 3.6 Absolute Monocytes 1.4 Absolute Eosinophils 0.2 Absolute Basophils 0.0 Sodium 140.5 Potassium 3.9 Chloride 104 Carbon Dioxide 23 Anion Gap 14 BUN 14 Creatinine 0.73 Est GFR ( Amer) > 60 Est GFR (Non-Af Amer) > 60 Glucose 130 H Calcium 9.9 Total Bilirubin 0.8 Direct Bilirubin 0.3 Neonat Total Bilirubin Not Reportable Neonat Direct Bilirubin Not Reportable Neonat Indirect Bili Not Reportable AST 39 H ALT 47 Alkaline Phosphatase 169 H Creatine Kinase 67 CK-MB (CK-2) 1.76 Troponin I < 0.012 Total Protein 7.9 Albumin 4.4 Chest X-Ray 04/10/19 18:27 IMPRESSION: 2 cm area of focal opacity in the right lung base. Otherwise no consolidation or significant pleural effusion. Chest/Abdomen CTA 04/10/19 19:01 IMPRESSION: 1. No central pulmonary embolism. 2. Right middle lobe consolidation and mediastinal adenopathy which may represent infection. 3. 4.0 mm solid pulmonary nodule. No routine follow-up imaging is recommended. These guidelines do not apply to patients younger than 35 years, immunocompromised patients, and patients with cancer. Follow up in patients with significant comorbidities as clinically warranted. For lung cancer screening, adhere to Lung-RADS guidelines. Reference: Radiology. 2017; 284(1):228-43. - Vital Signs Vital signs: Temp Pulse Resp BP Pulse Ox 98.3 F 25 H 137/90 H 99 04/10/19 20:55 04/10/19 23:01 04/10/19 23:01 04/10/19 23:39 - Laboratory Result Diagrams: 04/10/19 18:04 04/10/19 18:04 Laboratory results interpreted by me: 04/10/19 04/10/19 18:04 18:04 WBC 17.3 H RBC 5.44 H RDW 15.7 H Absolute Neutrophils 12.0 H Glucose 130 H AST 39 H Alkaline Phosphatase 169 H - EKG Interpretation by Me Additional EKG results interpreted by me: EKG demonstrates sinus tachycardia with a ventricular rate of 111 bpm, normal axis, normal intervals, no evidence of acute ischemia in this EKG. Discharge - Discharge Clinical Impression: Pneumonia, Pleuritic pain Condition: Stable Disposition: HOME, SELF-CARE Instructions: Pleurisy ([facility]), Pneumonia ([facility]) Additional Instructions: [facility] [place], please complete the entire course of antibiotics as prescribed. If your symptoms are worsening or not improving, do not hesitate to return to the emergency department to be reevaluated sooner. Prescriptions: RX: Azithromycin [Zithromax 250 mg Tablet] 250 mg PO ASDIR #6 tablet RX: Cefdinir 300 mg PO BID #14 capsule Referrals: JEFE WOOD DO [Primary Care Provider] - Follow up in 3-5 days
[2019-04-10] MEDS ORDERED: ONDANSETRON HCL INJ/PF 4 MG/2 ML SDV IV ONE (19:09)
[2019-04-10] MEDS ORDERED: LORAZEPAM INJ 2 MG/1 ML VIAL IV ONE (19:10)
--- NOTE | 2019-04-10 19:11 | EKG REPORT ---
SEVERITY:- ABNORMAL ECG - ELECTRICAL INTERFERENCE WITH BASELINE SIMULATING PACING. SINUS TACHYCARDIA 111/MIN. NONSPECIFIC ST-T CHANGES INFERIOR LEADS. : Confirmed by: Remi Oviedo MD 10-Apr-2019 19:10:49
[2019-04-10 19:28] LABS: CREATINE KINASE MB 1.76 ng/mL (<4.55)
[2019-04-10 19:32] LABS: TROPONIN I < 0.012 ng/mL
[2019-04-10 19:42] LABS: ALANINE AMINOTRANSFERASE 47 U/L (9-52); ALBUMIN 4.4 g/dL (3.5-5.0); ALKALINE PHOSPHATASE 169 U/L (38-126); ANION GAP 14 (5-19); ASPARTATE AMINO TRANSFERASE 39 U/L (14-36); BILIRUBIN,DIRECT 0.3 mg/dL (0.0-0.4); BILIRUBIN,TOTAL 0.8 mg/dL (0.2-1.3); BLOOD UREA NITROGEN 14 mg/dL (7-20); CALCIUM 9.9 mg/dL (8.4-10.2); CARBON DIOXIDE 23 mmol/L (22-30); CHLORIDE 104 mmol/L (98-107); CREATINE KINASE 67 U/L (30-135); GLUCOSE 130 mg/dL (75-110); POTASSIUM 3.9 mmol/L (3.6-5.0); SODIUM 140.5 mmol/L (137-145); TOTAL PROTEIN 7.9 g/dL (6.3-8.2)
--- NOTE | 2019-04-10 21:16 | RADIOLOGY REPORT (SQ) ---
CT CHEST ANGIOGRAPHY WITHOUT THEN WITH IV CONTRAST EXAM DATE: 04/10/2019 7:01 PM CDT HISTORY: Shortness of breath. COMPARISON: 05/17/2018 TECHNIQUE: CT angiogram of the chest with IV contrast. 3-D MIP images were obtained in coronal and sagittal reconstructions. This exam was performed according to our departmental dose-optimization program, which includes automated exposure control, adjustment of the mA and/or kV according to patient size and/or use of iterative reconstruction technique. FINDINGS: No filling defects are seen in the pulmonary trunk or the left and right main pulmonary artery. There is limited evaluation of the segmental branches due to motion artifact. The thyroid gland is normal. Unchanged mediastinal adenopathy. The heart size is normal without pericardial effusion. The thoracic aorta is normal caliber. Focal consolidation in the right middle lobe., pleural effusion, or pneumothorax is identified. Subcentimeter calcified granuloma in the left upper lobe. Biapical scarring. 4 mm nodule in the posterior left lower lobe. Unchanged hypodense lesions in the liver. Prior thoracolumbar fixation. No acute osseous findings. IMPRESSION: 1. No central pulmonary embolism. 2. Right middle lobe consolidation and mediastinal adenopathy which may represent infection. 3. 4.0 mm solid pulmonary nodule. No routine follow-up imaging is recommended. These guidelines do not apply to patients younger than 35 years, immunocompromised patients, and patients with cancer. Follow up in patients with significant comorbidities as clinically warranted. For lung cancer screening, adhere to Lung-RADS guidelines. Reference: Radiology. 2017; 284(1):228-43.
[2019-04-10] MEDS ORDERED: RINGERS SOLUTION,LACTATED 1,000 ML IV ONE (21:31)
[2019-04-10] MEDS ORDERED: AZITHROMYCIN INJ 500 MG VIAL IV ONE (21:31)
[2019-04-10] MEDS ORDERED: CEFTRIAXONE 1 GM/D5W RTU 1 GM/50 ML RTUPB IV ONE (21:33)
[2019-04-10 23:38] VITALS: BP 137/90
== END 2019-04-10 23:49 | disposition home or self-care (01) ==
LOC: ER 18:26
DX: J18.9 Pneumonia, unspecified organism (principal); R07.81 Pleurodynia; F17.210 Nicotine dependence, cigarettes, uncomplicated; Z88.2 Allergy status to sulfonamides
CPT/HCPCS: 93005; 99285; 96361; 96375; 96365; 36415; 82553; 82550; 85025; 80053; 84484; 71045; 71275; 93010; J2060; J2405; J7120; J0456; J0696; 96368

== ENCOUNTER → 2019-06-14 | Outpatient (CLI) | payer MEDICARE ==
--- NOTE | 2019-06-14 16:20 | WOMENS IMAGING REPORT ---
EXAM DESCRIPTION: BILAT SCREENING MAMMO W/CAD COMPLETED DATE/TIME: 06/14/2019 10:00 am REASON FOR STUDY: Z12.31 ENCOUNTER FOR SCREENING MAMMOGRAM FOR MALIGNANT NEOPLASM OF BREAST Z12.31 ENCNTR SCREEN MAMMOGRAM FOR MALIGNANT NEOPLASM OF CELESTINO COMPARISON: 2014, 2016 EXAM PARAMETERS: Standard craniocaudal and mediolateral oblique views of each breast recorded using digital acquisition. Read with the assistance of CAD. .COUNTS INCLUDE 234 BEDS AT THE [facility] - [employer] Manager Version 9.2 LIMITATIONS: None. FINDINGS: No suspicious masses, suspicious calcifications or architectural distortion. No areas of c oncern. IMPRESSION: Negative MAMMOGRAM. BIRADS 1 BREAST DENSITY: b. There are scattered areas of fibroglandular density. BIRAD: ASSESSMENT: 1 NEGATIVE RECOMMENDATION: ROUTINE SCREENING COMMENT: The patient has been notified of the results by letter per MQSA requirements. Additional no tification policies are in place for contacting patient with suspicious or incomplete findings. Quality ID #[id number]: The [employer] recommends an annual screening mammogram for women aged 40 years or over. This facility utilizes a reminder system to ensure that all patients receive reminder letters, and/or direct phone calls for appointments. This includes reminders for routine scr eening mammograms, diagnostic mammograms, or other Breast Imaging Interventions when appropriate. Th is patient will be placed in the appropriate reminder system. TECHNICAL DOCUMENTATION: FINDING NUMBER: (1) ASSESSMENT: (1) JOB ID: [id number] [employer]- All Rights Reserved Reading location - IP/workstation name: [email or web address]
== END ==
LOC: WI 09:40
PROVIDERS: ATTEND Family Medicine
DX: Z12.31 Encounter for screening mammogram for malignant neoplasm of breast (principal)
CPT/HCPCS: 77067

== ENCOUNTER 2019-10-21 14:42 | Emergency (ER) | payer OTHER, MEDICARE ==
--- NOTE | 2019-10-21 16:49 | RADIOLOGY REPORT (SQ) ---
EXAM DESCRIPTION: SHOULDER LEFT 2 OR MORE VIEWS COMPLETED DATE/TIME: 10/21/2019 4:40 pm REASON FOR STUDY: fall COMPARISON: None. NUMBER OF VIEWS: Three views. TECHNIQUE: Internal rotation, external rotation, and Y view images acquired of the left shoulder. LIMITATIONS: None. FINDINGS: MINERALIZATION: Normal. BONES: No acute fracture. No worrisome bone lesions. JOINTS: No dislocation. VISUALIZED LUNGS AND RIBS: No pneumothorax. No rib fracture. SOFT TISSUES: No radiopaque foreign body. OTHER: No other significant finding. IMPRESSION: NEGATIVE STUDY OF THE LEFT SHOULDER. NO RADIOGRAPHIC EVIDENCE OF ACUTE INJURY. TECHNICAL DOCUMENTATION: JOB ID: [id number] [employer]- All Rights Reserved Reading location - IP/workstation name: [email or web address]
[2019-10-21] MEDS ORDERED: HYDROMORPHONE HCL INJ/PF 2 MG/ML AMPULE IM ONE (16:52)
--- NOTE | 2019-10-21 16:57 | ER Document Report ---
ED Extremity Problem, Upper - General Chief Complaint: Shoulder Injury Stated Complaint: FALL/ARM PAIN Time Seen by Provider: 10/21/19 16:20 Primary Care Provider: JEFE WOOD DO [Primary Care Provider] - Follow up as needed Mode of Arrival: Ambulatory Information source: Patient TRAVEL OUTSIDE OF THE [place] IN LAST 30 DAYS: No - HPI Notes: Patient states that she fell off of a chair yesterday and hit the cement. She states she landed directly onto the left shoulder. She states she does not know why she fell out of the chair. She now complains of severe pain in the left shoulder that radiates down the left arm. Is worse with movement and better with rest. It is severe and constant. She also states she has some pain going up into the left lateral neck area. Patient denies any other injuries in the fall. - Related Data Allergies/Adverse Reactions: diclofenac [Diclofenac] Allergy (Intermediate, Verified 10/21/19 15:51) Hives Sulfa (Sulfonamide Antibiotics) Allergy (Intermediate, Verified 10/21/19 15:51) elevated WBC count, elevated B/P Past Medical History - General Information source: Patient - Social History Smoking Status: Never Smoker Chew tobacco use (# tins/day): No Frequency of alcohol use: Occasional Drug Abuse: None Family History: Reviewed & Not Pertinent Patient has suicidal ideation: No Patient has homicidal ideation: No - Past Medical History Cardiac Medical History: Denies: Hx Coronary Artery Disease, Hx Heart Attack, Hx Hypercholesterolemia, Hx Hypertension Pulmonary Medical History: Denies: Hx Asthma, Hx Bronchitis, Hx COPD, Hx Pneumonia Neurological Medical History: Denies: Hx Cerebrovascular Accident, Hx Seizures Endocrine Medical History: Reports: Hx Hypothyroidism. Denies: Hx Graves' Disease, Hx Hyperthyroidism Renal/ Medical History: Denies: Hx Kidney Stones, Hx Peritoneal Dialysis GI Medical History: Denies: Hx Crohn's Disease, Hx Gastroesophageal Reflux Disease, Hx Hiatal Hernia, Hx Irritable Bowel, Hx Liver Failure, Hx Pancreatitis, Hx Ulcer Musculoskeletal Medical History: Denies Hx Arthritis, Reports Hx Fibromyalgia, Denies Hx Muscular Dystrophy, Denies Hx Systemic Lupus Erythematosus Psychiatric Medical History: Reports: Hx Depression Traumatic Medical History: Denies: Hx Fractures Past Surgical History: Reports: Hx Section - X3, Hx Cholecystectomy, Hx Hysterectomy, Hx Orthopedic Surgery - left total hip replacement, spinal fusions, Hx Tonsillectomy. Denies: Hx Appendectomy, Hx Bowel Surgery, Hx Colostomy, Hx Coronary Artery Bypass Graft, Hx Gastric Bypass Surgery, Hx H erniorrhaphy, Hx Pacemaker, Hx Tubal Ligation - Immunizations Hx Diphtheria, Pertussis, Tetanus Vaccination: Yes - <5years Review of Systems - Review of Systems Constitutional: denies: Chills, Fever Cardiovascular: denies: Chest pain, Palpitations Respiratory: denies: Cough, Short of breath -: Yes All other systems reviewed and negative Physical Exam - Vital signs Vitals: Temp Pulse Resp BP Pulse Ox 98.4 F 95 18 163/96 H 99 10/21/19 15:01 10/21/19 15:01 10/21/19 15:01 10/21/19 15:10/21/19 15:01 Interpretation: Hypertensive - General General appearance: Appears well, Alert - HEENT Head: Normocephalic, Atraumatic Eyes: Normal Pupils: PERRL - Respiratory Respiratory status: No respiratory distress Chest status: Nontender Breath sounds: Normal Chest palpation: Normal - Cardiovascular Rhythm: Regular Heart sounds: Normal auscultation Murmur: No - Abdominal Inspection: Normal Distension: No distension Bowel sounds: Normal Tenderness: Nontender Organomegaly: No organomegaly - Back Back: Normal, Nontender - Extremities General upper extremity: Normal inspection, Tender - Left shoulder is exquisitely tender to palpation especially the anterior aspect., Normal color, Normal temperature General lower extremity: Normal inspection, Nontender, Normal color, Normal ROM, Normal temperature, Normal weight bearing. No: Christiane's sign - Neurological Neuro grossly intact: Yes Cognition: Normal Orientation: AAOx4 Danica Coma Scale Eye Opening: Spontaneous Danica Coma Scale Verbal: Oriented Danica Coma Scale Motor: Obeys Commands Danica Coma Scale Total: 15 Speech: Normal Motor strength normal: LUE, RUE, LLE, RLE Sensory: Normal - Psychological Associated symptoms: Normal affect, Normal mood - Skin Skin Temperature: Warm Skin Moisture: Dry Skin Color: Normal Course - Re-evaluation Re-evalutation: 10/21/19 16:54 Patient has very limited range of motion left shoulder secondary to pain. No evidence of dislocation or fracture. She appears to have a significant contusion causing severe pain. I will discharge patient home with a sling and pain medicine. Patient may also have a mild radicular component as well. - Vital Signs Vital signs: Temp Pulse Resp BP Pulse Ox 98.4 F 95 18 163/96 H 99 10/21/19 15:01 10/21/19 15:01 10/21/19 15:01 10/21/19 15:01 10/21/19 15:01 - Diagnostic Test Radiology reviewed: Image reviewed, Reports reviewed Procedures - Immobilization Left Arm Time completed: 16:54 Pre-Proc Neuro Vasc Exam: Normal Immobilizer type: Sling Performed by: RN Post-Proc Neuro Vasc Exam: Normal Alignment checked and good: Yes Discharge - Discharge Clinical Impression: Contusion of left shoulder Qualifiers: Encounter type: initial encounter Qualified Code(s): S40.012A - Contusion of left shoulder, initial encounter Condition: Stable Disposition: HOME, SELF-CARE Instructions: Oral Narcotic Medication ([facility]), Sling as Treatment ([facility]) Additional Instructions: Please call your primary care doctor as soon as possible to arrange follow-up Prescriptions: Hydrocodone/Acetaminophen [[place] 5-325 mg Tablet] 1 tab PO Q6 PRN 3 Days #12 tablet PRN Reason: Forms: Return to Work Referrals: JEFE WOOD DO [Primary Care Provider] - Follow up tomorrow
[2019-10-21 17:36] VITALS: BP 160/98
== END 2019-10-21 17:32 | disposition home or self-care (01) ==
LOC: ER 14:42
DX: S40.012A Contusion of left shoulder, initial encounter (principal); W07.XXXA Fall from chair, initial encounter; Z90.49 Acquired absence of other specified parts of digestive tract; Z90.710 Acquired absence of both cervix and uterus; Z96.642 Presence of left artificial hip joint; Z88.2 Allergy status to sulfonamides
CPT/HCPCS: 99283; 96372; 73030; J1170

== ENCOUNTER → 2020-04-15 | Day surgery (SDC) | payer MEDICARE ==
--- NOTE | 2020-04-15 15:12 | RADIOLOGY REPORT (SQ) ---
EXAM DESCRIPTION: CT LT UPPER EXTREMITY WITH IMAGES COMPLETED DATE/TIME: 04/15/2020 2:40 pm REASON FOR STUDY: M75.42 IMPINGEMENT SYNDROME OF LEFT SHOULDER M75.42 IMPINGEMENT SYNDROME OF LEFT SHOULDER COMPARISON: None. TECHNIQUE: Axial imaging performed through the leftshoulder with reformatted oblique coronal and obl ique sagittal imaging windowed for bone and soft tissues. All CT scanners at this facility use dose modulation, iterative reconstruction, and/or weight based d osing when appropriate to reduce radiation dose to as low as reasonably achievable (ALARA). [facility]: Dose Right [facility]: CareDose [facility]: Dose Right [facility]: Teradose 4D [facility]: Smart [employer] RADIATION DOSE: CT Rad equipment meets quality standard of care and radiation dose reduction techniq ues were employed. CTDIvol: 13.6 mGy. DLP: 349 mGy-cm. mGy. LIMITATIONS: None. FINDINGS: There is adequate joint distention. Contrast extends along the articular surface of the i nfraspinatus, partial width full-thickness. The spinatus and subscapularis. Intact. Labrum and bic eps anchor appear intact. Mild AC and glenohumeral joint arthropathy. IMPRESSION: Partial width full-thickness tear of the infraspinatus. TECHNICAL DOCUMENTATION: JOB ID: [id number] Quality ID # [id number]: Final reports with documentation of one or more dose reduction techniques (e.g., Au tomated exposure control, adjustment of the mA and/or kV according to patient size, use of iterative reconstruction technique) 2010 [employer]- All Rights Reserved Reading location - IP/workstation name: [email or web address]
--- NOTE | 2020-04-15 15:58 | RADIOLOGY REPORT (SQ) ---
EXAM DESCRIPTION: ARTHRO SHOULDER INJECTION; FLUORO/NEEDLE PLACEMENT IMAGES COMPLETED DATE/TIME: 04/15/2020 2:41 pm REASON FOR STUDY: M75.42 IMPINGEMENT SYNDROME OF LEFT SHOULDER M75.42 IMPINGEMENT SYNDROME OF LEFT SHOULDER COMPARISON: None. FLUOROSCOPY TIME: 12 seconds 2 images saved to PACS. LIMITATIONS: None. PROCEDURE: Procedure, risks, benefits and alternative explained to patient who then gave written con sent. The left posterior shoulder was marked and a time-out was called for correct marking verificat ion. Posterior entry site marked using fluoroscopic guidance. Shoulder prepped and draped using meera rile technique. Local anesthesia achieved using 1% lidocaine injection. 22 gauge spinal needle intro duced into the joint space under direct fluoroscopic visualization. Non-ionic contrast instilled to confirm intra-articular position. Additional dilute non-ionic contrast instilled. Needle removed an d entry site covered with sterile bandage. No immediate complications noted. TECHNIQUE: Digital images acquired during fluoroscopy and stored on PACS. Patient immediately take n to the CT suite for additional imaging. INJECTION LOCATION: Left posterior shoulder CONTRAST TYPE AND AMOUNT: 1 mL Omnipaque 300, 10 mL dilute Omnipaque 300. IMPRESSION: SUCCESSFUL NEEDLE PLACEMENT AND INJECTION FOR LEFT SHOULDER CT ARTHROGRAM USING POSTERIO R APPROACH. COMMENT: None Quality ID 145: Final reports for procedures using fluoroscopy that document radiation exposure cameron precious, or exposure time and number of fluorographic images (if radiation exposure indices are not avail able) TECHNICAL DOCUMENTATION: JOB ID: [id number] 2010 [employer]- All Rights Reserved Reading location - IP/workstation name: [email or web address] [id number]
--- NOTE | 2020-04-15 15:58 | RADIOLOGY REPORT (SQ) ---
EXAM DESCRIPTION: ARTHRO SHOULDER INJECTION; FLUORO/NEEDLE PLACEMENT IMAGES COMPLETED DATE/TIME: 04/15/2020 2:41 pm REASON FOR STUDY: M75.42 IMPINGEMENT SYNDROME OF LEFT SHOULDER M75.42 IMPINGEMENT SYNDROME OF LEFT SHOULDER COMPARISON: None. FLUOROSCOPY TIME: 12 seconds 2 images saved to PACS. LIMITATIONS: None. PROCEDURE: Procedure, risks, benefits and alternative explained to patient who then gave written con sent. The left posterior shoulder was marked and a time-out was called for correct marking verificat ion. Posterior entry site marked using fluoroscopic guidance. Shoulder prepped and draped using meera rile technique. Local anesthesia achieved using 1% lidocaine injection. 22 gauge spinal needle intro duced into the joint space under direct fluoroscopic visualization. Non-ionic contrast instilled to confirm intra-articular position. Additional dilute non-ionic contrast instilled. Needle removed an d entry site covered with sterile bandage. No immediate complications noted. TECHNIQUE: Digital images acquired during fluoroscopy and stored on PACS. Patient immediately take n to the CT suite for additional imaging. INJECTION LOCATION: Left posterior shoulder CONTRAST TYPE AND AMOUNT: 1 mL Omnipaque 300, 10 mL dilute Omnipaque 300. IMPRESSION: SUCCESSFUL NEEDLE PLACEMENT AND INJECTION FOR LEFT SHOULDER CT ARTHROGRAM USING POSTERIO R APPROACH. COMMENT: None Quality ID [id number]: Final reports for procedures using fluoroscopy that document radiation exposure cameron precious, or exposure time and number of fluorographic images (if radiation exposure indices are not avail able) TECHNICAL DOCUMENTATION: JOB ID: [id number] 2010 [employer]- All Rights Reserved Reading location - IP/workstation name: [email or web address] [id number]
== END ==
LOC: RAD 13:41
PROVIDERS: ATTEND Family Medicine
DX: M75.42 Impingement syndrome of left shoulder (principal)
CPT/HCPCS: 23350; 77002

== ENCOUNTER 2020-06-30 07:59 | Day surgery (SDC) | payer OTHER, MEDICARE ==
[2020-06-30 08:57] LABS: INTERNATIONAL RATION (INR) 0.88; PROTHROMBIN TIME 12.2 SEC (11.4-15.4)
[2020-06-30 08:58] LABS: PARTIAL THROMBOPLASTIN TIME 25.5 SEC (23.5-35.8)
--- NOTE | 2020-06-30 12:42 | RADIOLOGY REPORT (SQ) ---
EXAM DESCRIPTION: MYELOGRAM LUMBAR; CT LUMBAR SPINE WITH IMAGES COMPLETED DATE/TIME: 06/30/2020 11:11 am; 06/30/2020 11:16 am REASON FOR STUDY: RADICULOPATHY LUMBAR REGION; RADICULOPATHY LUMBAR REGION (MYELO) M54.16 RADICULOP ATHY, LUMBAR REGION COMPARISON: None. FLUOROSCOPY TIME: 9 seconds. 12 images saved to PACS. TECHNIQUE: Fluoroscopic guided lumbar myelogram. LIMITATIONS: None. PROCEDURE: After written consent and assessment were obtained, the patient was brought into the fluo roscopy room and placed prone on the table. The patient's lower back was prepped in a sterile fashio n and an entry site was selected under live fluoroscopic guidance. The entry site was anesthetized wi th 1% lidocaine. The spinal needle was advanced through the skin and into the thecal sac at the level of L4-L5. Contrast was injected into the thecal sac. Following the procedure the needle was remove d and a sterile bandage was placed of the site. CONTRAST: 15 mL Omnipaque 180. IMAGES ACQUIRED: 12. TECHNIQUE: After performing lumbar myelogram, axial images were acquired through the lumbar spine wi thout intravenous contrast. Images reviewed with lung, soft tissue and bone windows. Reconstructed coronal and sagittal MPR images reviewed. All images stored on PACS. All CT scanners at this facility use dose modulation, iterative reconstruction, and/or weight based d osing when appropriate to reduce radiation dose to as low as reasonably achievable (ALARA). [facility]: Dose Right [facility]: CareDose [facility]: Dose Right [facility]: Teradose 4D [facility]: [employer] FINDINGS: SEGMENTATION: Normal. No transitional anatomy. ALIGNMENT: Normal. VERTEBRAL BODIES: No fractures. No dislocation. No acute findings. HARDWARE: Extensive posterior hardware extending from the T12-S1 levels. Disc spacers throughout the lumbar disc levels. DISCS: L1-L2: No significant protrusions. No significant stenosis. L2-L3: No significant protrusions. No significant stenosis. L3-L4: No significant protrusions. No significant stenosis. L4-L5: No significant protrusions. No significant stenosis. L5-S1: No significant protrusions. No significant stenosis. PEDICLES, TRANSVERSE PROCESSES: No fractures. No dislocation. No acute findings. FACETS, POSTERIOR ELEMENTS: Extensive posterior fusion. No fractures. No dislocation. Decompressi ve laminectomy at L4-L5 and L5-S1. No spinal stenosis. VISUALIZED RIBS: No fractures. SOFT TISSUES: No significant or acute finding in adjacent soft tissues. OTHER: No other significant finding. IMPRESSION: EXTENSIVE DISC FUSION AND POSTERIOR FUSION THROUGHOUT THE LUMBAR SPINE WITH DISC HARDWAR E AND POSTERIOR SPINAL HARDWARE. DECOMPRESSIVE LAMINECTOMY IN THE LOWER LUMBAR SPINE. NO APPARENT A CUTE FINDINGS. NO SPINAL STENOSIS. COMMENT: Patient medication list reviewed: Yes- Quality ID# [id number]:Eligible professional attests to doc umenting in the medical record they obtained, updated, or reviewed the patient's current medications. TECHNICAL DOCUMENTATION: JOB ID: [id number] Quality ID # [id number]: Final reports with documentation of one or more dose reduction techniques (e.g., Au tomated exposure control, adjustment of the mA and/or kV according to patient size, use of iterative reconstruction technique) 2010 [employer]- All Rights Reserved Reading location - IP/workstation name: [email or web address]
[2020-06-30 13:26] VITALS: BP 134/78
== END 2020-06-30 13:10 | disposition home or self-care (01) ==
LOC: RAD 07:59
PROVIDERS: ATTEND Anesthesiology Pain Medicine
DX: M54.16 Radiculopathy, lumbar region (principal)
CPT/HCPCS: 36415; 72132; 72265; 85610; 85730

== ENCOUNTER → 2020-08-12 | Outpatient (CLI) | payer OTHER ==
--- NOTE | 2020-08-12 14:55 | RADIOLOGY REPORT (SQ) ---
EXAM DESCRIPTION: U/S ABDOMEN LIMITED W/O DOP IMAGES COMPLETED DATE/TIME: 08/12/2020 10:57 am REASON FOR STUDY: ELEVATED LIVER ENZYMES COMPARISON: None. TECHNIQUE: Dynamic and static grayscale images acquired of the abdomen and recorded on PACS. Additio nal selected color Doppler and spectral images recorded. LIMITATIONS: None. FINDINGS: PANCREAS: No masses. Visualized pancreatic duct normal caliber. LIVER: Two homogeneously hyperechoic masses are seen, One in the liver right lobe measures 2.1 x 1.4 x 1.7 cm. One in the left lobe measures 1.5 x 1.9 x 1.9 cm. These demonstrate imaging characteristi cs consistent with hepatic hemangiomas. Liver echogenicity is otherwise normal. LIVER VASCULATURE: Normal directional flow of the main portal vein and hepatic veins. GALLBLADDER: No stones. Normal wall thickness. No pericholecystic fluid. ULTRASOUND-DETECTED SINHA'S SIGN: Negative. INTRAHEPATIC DUCTS AND COMMON DUCT: CBD and intrahepatic ducts normal caliber. No filling defects. INFERIOR VENA CAVA: Normal flow. AORTA: No aneurysm. RIGHT KIDNEY: Normal size. Normal echogenicity. No solid or suspicious masses. No hydronephrosis. No calcifications. PERITONEAL AND RIGHT PLEURAL SPACE: No ascites or effusions. OTHER: No other significant findings. IMPRESSION: Liver findings most consistent with small hepatic hemangiomas. Otherwise normal sonogra phic appearance of the right upper quadrant. TECHNICAL DOCUMENTATION: JOB ID: [id number] 2010 [employer]- All Rights Reserved Reading location - IP/workstation name: [email or web address]
== END ==
LOC: RAD 09:28
PROVIDERS: ATTEND Physician Assistant
DX: D18.03 Hemangioma of intra-abdominal structures (principal)
CPT/HCPCS: 76705